=== PATIENT | male | born 1950 | race Caucasian/White ===

== ENCOUNTER 2017-08-17 08:13 | Observation (INO) | payer OTHER ==
[~2017-08-17] VITALS: Ht 182.9 cm; Wt 111.3 kg
[2017-08-17] VITALS (15 sets, daily range): BP systolic 135–178; BP diastolic 72–99; PULSE 58–78; TEMP 36.6–37.4; O2SAT 93–97; Ht 182.9 cm; Wt 111.3 kg
[2017-08-17] MEDS ORDERED: MULTTAB5 (08:59)
[2017-08-17] MEDS ORDERED: ACET650T66 PO (08:59)
[2017-08-17] MEDS ORDERED: MISC1CAP2 (08:59)
[2017-08-17] MEDS ORDERED: LISI-725 PO (08:59)
[2017-08-17] MEDS ORDERED: ASPCH81X PO (08:59)
[2017-08-17] MEDS ORDERED: NUTR1TAB3 (08:59)
[2017-08-17] MEDS ORDERED: METO25TA4 PO (08:59)
[2017-08-17] MEDS ORDERED: HYDR25TA4 PO (08:59)
[2017-08-17] MEDS ORDERED: ATOR-24 PO (08:59)
[2017-08-17] MEDS ORDERED: [UNRECOGNIZED DRUG - CODE] (08:59)
[2017-08-17] MEDS ORDERED: NiCARDipine HCL INJ 2.5 MG/ML 10 ML AMP ONE (09:45)
[2017-08-17] MEDS ORDERED: NITROGLYCERIN/D5W 100MCG/ML 20ML SYR ONE (09:46)
[2017-08-17] MEDS ORDERED: HEPARIN SOD (PORCINE) 1000 UNIT/ML 10 ML VIAL ONE ×2 (09:46→11:07)
[2017-08-17] MEDS ORDERED: MIDAZOLAM HCL 1 MG/ML 2ML VIAL ONE (09:46)
[2017-08-17] MEDS ORDERED: FENTANYL CITRATE INJ 50 MCG/1 ML 2 ML VIAL ONE (09:47)
--- NOTE | 2017-08-17 09:52 | History & Physical Bridge Note ---
H&P Re-Evaluation Bridge Note: I have examined the patient, reviewed the History & Physical and in the interval since the performance of the History & Physical I have noted the following changes of clinical significance: No changes noted
--- NOTE | 2017-08-17 11:03 | Procedure Note ---
Cardiac Cath Report Procedure: 1. Coronary angiography 2. Left heart cath History: This is a 66-year-old male patient who has had continued symptoms of dyspnea and shortness of breath with activity suggestive of angina. In January of last year he had GI bleeding from stomach ulcers due to NSAIDs. After he recovered from his anemia he had continued symptoms and it was felt that it was best that he be evaluated with a cardiac catheterization. Procedure summary: The patient was seen and evaluated in the holding area the Retail Pharmacy Merchandiser. After informed consent was obtained the patient was taken to the cardiac catheterization lab where he was prepped and draped in the usual manner for a right transradial approach. The patient had good collateral flow from the ulnar artery prior to the procedure. Preformed 5 Tamazight diagnostic catheters were utilized for the coronary angiograms. Following the procedure the patient underwent coronary intervention and then was admitted in stable condition. Coronary angiography: The coronary anatomy is calcified under fluoroscopy. Selective injections of the left coronary artery revealed the left main trunk to be widely patent. There are 2 ramus branches one from the left circumflex and one from the LAD which are medium to large in size. The ramus from the left circumflex artery has a 50% proximal stenosis. The ramus from the LAD has a 60-70% mid stenosis. The left circumflex artery consists of an AV groove and a medium to large size marginal branch. There is also a small marginal branch between the ramus and the large marginal branch. The left circumflex system is widely patent. There is also evidence of a bronchial artery from the distal circumflex. The LAD does reach the apex of the heart. The LAD is diffusely diseased in its proximal and midsegment. In the proximal segment there is a 50 % narrowing. The LAD gives off 2 small to medium sized diagonal branches. Selective injections of the right coronary artery reveal it to be diffusely diseased. The right coronary artery is dominant. In its proximal segment there is an ulcerated 80-90% stenoses. There are several branches from the right coronary artery that supply the posterior septum. Each branch has at least a 60-70% stenosis in its mid to distal segment. Left heart catheterization: The LVEDP is 10. Summary: The patient has a severe ulcerated stenosis of the proximal right coronary artery which is large and dominant. The remainder of the coronary anatomy has peripheral small vessels which are diseased but can be treated medically. Recommendations: The patient has a history of GI bleeding and therefore a bare- metal stent will be inserted in the right coronary artery.
--- NOTE | 2017-08-17 11:06 | Cardiac Catheterization ---
Procedure Note Procedure Date Aug 17, 2017. Pre-Procedure Diagnosis Angina AUC Score 7 Post-Procedure Diagnosis Severe CAD Procedure(s) Performed Coronary Angiography, Left Heart Cath Wireless Sales Associate Dr. Allred Furniture Repairer(s) None Estimated Blood Loss None Medication(s) Heparin, Versed, Lidocaine 1% Summary of Findings See dictated report Hemodynamics Rest Ao: 116/70 Final Ao: 142/73 LV: 123/10 Recommendations PCI without planned CABG Specimens None Radiation Exposure (mGy) 3147 Contrast (mls) 106 Procedural Complication(s) None Disposition Recovery Room / PACU ACC Data Cardiac Status Clinical evaluation leading to the procedure CAD Presntation: Unstable angina Anginal Classification: CCS III Heart Failure: No Cardiogenic Shock w/in 24Hrs: No Cardiac Arrest w/in 24Hrs: No Imaging studies past 6 months: Yes Stress studies past 6 months: Yes Coronary Anatomy Dominant: Right Left Main (% Stenosis): Normal Circumflex (% Stenosis): Normal RCA (% Stenosis): Proximal (80) Diagnostic Status: Elective Closure Device Percutaneous Entry Location: Radial Closure Device: Radial Band Recommendations: PCI without planned CABG
--- NOTE | 2017-08-17 11:07 | Pre Sedation Assessment ---
Pre Sedation Assessment General Date of Sedation: Aug 17, 2017. Vital Signs Past 12 Hours Date Time Temp Pulse Resp B/P (MAP) Pulse Ox O2 Delivery O2 Flow Rate FiO2 08/17/17 08:56 37 74 18 178/95 (122) 97 Room Air Review Cardiovascular: regular rate, rhythm Lungs: lungs clear Pre-Sedation Airway Assessment Smoking Status: Former Smoker Hx of Sleep Apnea: No Hx of difficult intubation: No Short Thick Neck: No Thyro-mental Distance: > 3 Finger Breadths Oral Cavity: WNL Mallampati Classification: Class I ASA Classification: Class II NPO Status Date of Last Intake of Fluids: Aug 17, 2017 Time of Last Intake of Fluids: 0700 Date of Last Intake of Solids: Aug 16, 2017 Time of Last Intake of Solids: 1800 Notes The planned sedation has been discussed with the patient. Informed Consent was obtained. I have identified the patient, determined the appropriateness of sedation and have assessed the patient immediately prior to the procedure. All medicine(s) and interventions are by my order.
[2017-08-17] MEDS ORDERED: CLOPIDOGREL BISULFATE 300 MG TAB PO ONE (11:41)
[2017-08-17] MEDS ORDERED: NITROGLYCERIN 0.4 MG SL PER TAB CHARGE SL PRN (11:45)
[2017-08-17] MEDS ORDERED: ACETAMINOPHEN 325 MG TAB PO PRN (11:45)
[2017-08-17] MEDS ORDERED: ONDANSETRON INJ 2 MG/ML 2 ML VIAL IV PRN (11:45)
--- NOTE | 2017-08-17 11:56 | Post Sedation Assessment ---
Post Sedation Assessment General Date of Sedation Aug 17, 2017. Vital Signs: Vital Signs Past 12 Hours Date Time Temp Pulse Resp B/P (MAP) Pulse Ox O2 Delivery O2 Flow Rate FiO2 08/17/17 11:30 60 16 128/60 (82) 96 Room Air 08/17/17 08:56 37 74 18 178/95 (122) 97 Room Air Post Procedure Recovery Score Activity: (2) Moves 4 extremities * Respiration: (2) Deep breath/cough Circulation: (2) +/-20% PreAnes Value Consciousness: (2) Fully Awake Oxygen Saturation: (2) > 92% On Room Air Post Anesthesia Score: 10 Discharge Sedation Level of Care: Fast Track Phase II Post Sedation Plan On clinical assessment, the patient appears to have tolerated the sedation without complications. Patient is recovering as anticipated. Patient will continue to be monitored by nursing and may be discharged when sedation discharge criteria are met per below protocol. Upon Completions of procedure and additional 15 minutes continue every 5 minute vital signs and the P.A.R. score; then discharge to a Phase I or Fast Track to Phase II per the following guidelines: * Discharge Patient to appropriate Phase II area if PAR is 8 or greater or return to pre- procedure baseline. The post - procedure orders will be as directed. * If PAR score is less than 8 or not return to pre-procedure baseline then patient will follow Phase I monitoring till PAR is reached for Phase II. The Phase I may be done in procedure room or may call to secure a Phase I area. * If naloxone or flumazenil are used for reversal, hold in Phase I for an additional 60 -120 minutes before discharge to Phase II. Please call the Sedation Physician to re-evaluate and complete post-note for discharge to Phase II area. Do NOT discharge from procedure sedation or Phase 1 until post- sedation evaluation note is complete by procedure /sedation MD Sedation Discharge Instructions to be given to the patient at discharge to home.
--- NOTE | 2017-08-17 12:10 | Cardiac Catheterization ---
Procedure Note Procedure Date Aug 17, 2017. Pre-Procedure Diagnosis Angina AUC Score 7 Post-Procedure Diagnosis Severe CAD Procedure(s) Performed Drug Eluting Stent, IVUS Stripping Machine Operator Juanjo Aircraft Powertrain Repairer(s) Rogelio Estimated Blood Loss 20 Medication(s) Fentanyl, Heparin, Nicardipine, Versed, Lidocaine 1% Summary of Findings Indication: Refractory angina on medical therapy Access: 6Fr right radial artery Catheters: JR 4 guide Findings: For full details of patient's coronary angiography please see cath report dictated by Dr. Allred. Briefly patient found to have a high-grade, ectatic proximal RCA lesion. Decision to proceed with PCI. History of gastric ulcers with bleeding -- PCI -- Antithrombotic therapy: Heparin, Clopidogrel Procedure: RCA cannulated with JR4 guide Lead Coater 50 wire passed across lesion into distal vessel Proximal RCA direct stented with 4.5 x 18 BMS (multilink ultra) Stent post-dilated with 5.0 noncompliant balloon IVUS showed well expanded stent and well apposed stent proximally. Few stent struts hanging out into aneurysmal segment right after stenosis. Post procedure ANMOL 3 flow, stent well expanded with minimal residual stenosis and no apparent cardiac complications. Arterial Closure: TR Band Summary: 1. Successful PCI of proximal RCA with single BMS (4.5 x 18, post-dilated to 5.0 ). Recommendations: To PCU for continued monitoring Loaded with Clopidogrel 600mg in label folder Continue dual-antiplatelet therapy for 1 month Continue statin, ASCVD risk factor modification Consult cardiac Rehab If persistent symptoms in the future and tolerates DAPT R-PDA, PLB could potentially be treated with POBA/PCI with stenting. Hemodynamics Rest Ao: 116/70/92 Final Ao: 142/73/100 LV: 123/10 Recommendations PCI without planned CABG Specimens None Radiation Exposure (mGy) 3147 Contrast (mls) 106 Vis Fluids (cc crystalloids) 55 NSS Drains None Anesthesia Moderate Procedural Complication(s) None Disposition PCU ACC Data Cardiac Status Clinical evaluation leading to the procedure CAD Presntation: Stable angina Anginal Classification: CCS III Heart Failure: No, NYHA Class: CCS I Cardiogenic Shock w/in 24Hrs: No Cardiac Arrest w/in 24Hrs: No Imaging studies past 6 months: Yes Stress studies past 6 months: No Diagnostic Physician's Name: Placido Allred, DO Status: Elective Closure Device Percutaneous Entry Location: Radial Closure Device: Radial Band Recommendations: PCI without planned CABG PCI Indication: Angina despite med therapy Lesion Segment Name: proximal RCA Culprit Artery: Yes Stenosis Prior to Rx (%): 70 Chronic Total Occlusion: No IVUS: Yes FFR: No Pre-Procedure ANMOL Flow: 3 Lesion Complexity: Non-High/Non-C Lesion Length (mm): 12 Thrombus Present: Yes Bifurcation Lesion: No Guidewire Across Lesion: Yes Guidewire: Stenosis Post-Procedure (%): 0 Post-Procedure ANMOL Flow: 3 Device(s) Deployed: Yes Intraprocedure Events Significant Dissection: No Perforation: No
--- NOTE | 2017-08-17 13:14 | History and Physical ---
History & Physical Date & Time of Service: Aug 17, 2017 at 13:14 Chief Complaint: Shortness of breath . Primary Care Physician: Arron Mueller D.O. History of Present Illness Source: patient, clinic records, hospital records 66-year-old male followed by Dr. Mueller. History of hypertension, dyslipidemia, and other problems noted below. Pharmacologic nuclear stress test performed on 03/06/17 to evaluate dyspnea on exertion. Study demonstrated diffuse ST depression and perfusion defects inferiorly and laterally. Cardiac catheterization initially postponed due to recent upper gastrointestinal bleeding secondary to ulcers. Catheterization was performed today by Dr. Allred and he is found to have a proximal RCA lesion. PCI with bare-metal stent performed by Dr. Geiger with good results. Doing well after procedure. No chest pain. No cough or dyspnea. No nausea or vomiting. . Past Medical/Surgical History Chronic and Resolved Medical Problems: (1) CAD (coronary artery disease) Status: Chronic (2) Dyslipidemia Status: Chronic (3) Hypertension Status: Chronic (4) Upper gastrointestinal bleeding Permanent Comment: gastric ulcers attributed to naproxen Status: Chronic Surgical Problems: (1) Status post appendectomy Status: Chronic (3) Status post inguinal hernia repair Status: Chronic . Family History Mother-chronic kidney disease, pulmonary embolism Father-CHF, suspected NM . Social History Smoking Status: Never Smoker Alcohol Use: none Allergies Coded Allergies: No Known Allergies (Unverified , 07/03/14) Home Medications Scheduled Acetaminophen (Arthritis Pain), 2 TABS PO BID Aspirin (Aspirin Chewable), 81 MG PO DAILY Atorvastatin (Lipitor), 40 MG PO DAILY Hydrochlorothiazide (Hctz), 1 TAB PO DAILY Lisinopril (Zestril), 10 MG PO DAILY Metoprolol Succinate (Toprol Xl), 0.5 TAB PO DAILY Miscellaneous Medications Gvbuozny-Njrm-Eujjrqj (Veinerect) Misc Natural Products (Prostate) Multiple Vitamins W/ Minerals (Centrum) Nutritional Supplements (Bladder 2.2) Review of Systems Constitutional: No fever Respiratory: + dyspnea on exertion, No cough Cardiovascular: No chest pain, No edema Abdomen: No nausea, No vomiting, No GI bleeding (No recent melena or hematochezia) Genitourinary - Male: + urinary frequency, No hematuria, No dysuria Physical Exam Vital Signs Date Time Temp Pulse Resp B/P (MAP) Pulse Ox O2 Delivery O2 Flow Rate FiO2 08/17/17 12:46 37.1 58 18 172/72 95 Room Air 08/17/17 12:30 68 16 130/80 (97) 97 Room Air 08/17/17 12:15 70 16 138/89 (105) 97 Room Air 08/17/17 12:00 70 16 145/89 (107) 97 Room Air 08/17/17 11:45 65 16 149/80 (103) 95 Room Air 08/17/17 11:30 60 16 128/60 (82) 96 Room Air 08/17/17 08:56 37 74 18 178/95 (122) 97 Room Air General Appearance: WD/WN, no apparent distress Head: normocephalic, atraumatic Eyes: normal inspection, PERRL, EOMI, sclerae normal ENT: normal ENT inspection, hearing grossly normal Neck: thyroid normal, trachea midline Respiratory/Chest: lungs clear (Auscultation and percussion), no respiratory distress Cardiovascular: + pertinent finding (Bigeminal rhythm; no murmur or gallop appreciated; carotids 2/2; pedal pulses intact) Abdomen/GI: normal bowel sounds, non tender, soft, no organomegaly Extremities/Musculoskelatal: no calf tenderness, + pertinent finding (No cyanosis or clubbing ; compression band right wrist) Neurologic/Psych: alert, oriented x 3 Skin: normal color, warm/dry Lymphatic: no adenopathy Diagnostics Laboratory Results Results Past 24 Hours Test 08/17/17 11:05 08/17/17 13:06 Range/Units Kaolin Activated Coagulation Time 224 94-140 SECONDS EKG EKG performed at 1357 revealed normal sinus rhythm at 65/minute, no acute ST or T-wave abnormalities. . Impression Assessment and Plan CORONARY ARTERY DISEASE Status post successful stenting of proximal RCA lesion with bare-metal stent. Antiplatelet therapy with aspirin and clopidogrel. Continue metoprolol. Continue atorvastatin. VENTRICULAR ECTOPY Noted to have PVCs and intermittent bigeminal rhythm upon arrival to Telemetry Unit. Serum magnesium and potassium normal. Patient did not take his morning dose of metoprolol; it was ordered. Continue cardiac monitoring. HYPERTENSION Continue metoprolol and lisinopril. DYSLIPIDEMIA Continue atorvastatin. VTE PROPHYLAXIS Received IV heparin with cardiac cath. Convert to SQ heparin. Ambulate. DISPOSITION Expected discharge to home. Medical follow-up with Dr. Mueller. Cardiology follow-up with Dr. Patten. . Advanced Directives Existing Living Will: No Existing Power of Produce Buyer: No Resuscitation Status VTE Prophylaxis Will order VTE Prophylaxis: Yes
[2017-08-17] MEDS: SODIUM CHLORIDE 0.9% 1000ML 1,000 ML IV SCH ×2 (13:19→19:48)
[2017-08-17] MEDS ORDERED: METOPROLOL SUCC 25MG EXT REL TAB PO STA (13:22)
[2017-08-17] MEDS ORDERED: METOPROLOL TARTRATE 1 MG/ML VIAL IV STA (13:22)
[2017-08-17 14:14] LABS: CALCIUM 8.6 mg/dl (8.5-10.1); CREATININE 1.11 mg/dl (0.60-1.40); POTASSIUM 3.9 mmol/L (3.5-5.1)
[2017-08-17] MEDS ORDERED: INFLUENZA ADMINISTRATION CHARGE ONE (17:15)
[2017-08-17] MEDS ORDERED: INFLUENZA VACCINE HIGH DOSE 65+ 0.5 ML SYR IM. ONE (17:15)
[2017-08-17] MEDS ORDERED: IV FLUIDS COMPLETED PRN (17:30)
[2017-08-18 03:40] VITALS: BP 157/98; PULSE 95; TEMP 37.5; O2SAT 93
[2017-08-18 07:02] LABS: CALCIUM 8.5 mg/dl (8.5-10.1); CREATININE 0.97 mg/dl (0.60-1.40); POTASSIUM 3.8 mmol/L (3.5-5.1)
[2017-08-18 07:37] LABS: PTT PATIENT 26.3 SECONDS (21.0-31.0)
[2017-08-18 07:44] LABS: HEMOGLOBIN 13.3 g/dL (14.0-18.0); MEAN CELL VOLUME 97.3 fL (80-100); MEAN CORPUSCULAR HEMOGLOBIN 33.2 pg (25-34); MEAN CORPUSCULAR HGB CONC 34.1 g/dl (32-36); MEAN PLATELET VOLUME 10.7 fL (7.4-10.4); PLATELET COUNT 88 K/uL (130-400); RED CELL DISTRIBUTION WIDTH CV 14.4 % (11.5-14.5); RED CELL DISTRIBUTION WIDTH SD 51.3 fL (36.4-46.3); WHITE BLOOD COUNT 4.48 K/uL (4.8-10.8)
[2017-08-18 07:45] LABS: BASO % 0.4 %; BASO ABS # 0.02 K/uL (0-0.2); EOS % 2.7 %; EOS ABS # 0.12 K/uL (0-0.5); IG# 0.01 K/uL (0.00-0.02); LYMPH % 16.3 %; LYMPH ABS # 0.73 K/uL (1.2-3.4); MONO ABS # 0.45 K/uL (0.11-0.59); NEUT % 70.4 %; NEUT ABS # 3.15 K/uL (1.4-6.5)
[2017-08-18 08:05] VITALS: BP 134/90; PULSE 72; TEMP 37.3; O2SAT 95
[2017-08-18] MEDS ORDERED: CEROVITE ADV FORMULA TAB PO SCH (09:00)
[2017-08-18] MEDS ORDERED: HYDROCHLOROTHIAZIDE 25 MG TAB PO SCH (09:00)
[2017-08-18] MEDS ORDERED: ATORVASTATIN 20 MG TAB PO SCH (09:00)
[2017-08-18] MEDS ORDERED: ASPIRIN 81 MG ECTAB PO SCH (09:00)
[2017-08-18] MEDS ORDERED: HEPARIN SOD 5000 UNIT/0.5 ML CARP SQ SCH (09:00)
[2017-08-18] MEDS ORDERED: CLOPIDOGREL BISULFATE 75 MG TAB PO SCH (09:00)
[2017-08-18] MEDS ORDERED: LISINOPRIL 20 MG TAB PO SCH (09:00)
[2017-08-18] MEDS ORDERED: METOPROLOL SUCC 25MG EXT REL TAB PO SCH (09:00)
[2017-08-18] MEDS ORDERED: PLV75 PO ×2 (10:46→10:48)
--- NOTE | 2017-08-18 10:46 | Cardiology Follow-Up ---
Subjective Subjective Date of Service: Aug 18, 2017. Pt evaluation today including: conversation w/ patient, physical exam, chart review, lab review, review of studies, review of inpatient medication list Additional Details: Pt seen and examined, states that he feels well. No complaints overnight, denies cp, sob, palpitations, lightheadedness or dizziness. No pain at wrist puncture site. Tele reviewed: sinus rhythm without arrhythmia, occasional PVC's. Review of Systems Respiratory: No see HPI, No cough, No sputum, No wheezing, No shortness of breath, No dyspnea on exertion, No dyspnea at rest, No hemoptysis, No problem reported Cardiac: No see HPI, No chest pain, No orthopnea, No PND, No edema, No claudication, No palpitations, No problem reported Objective Vital Signs Last Vital Signs Documentation Date Time Temp Pulse Resp B/P (MAP) Pulse Ox O2 Delivery O2 Flow Rate FiO2 08/18/17 08:05 37.3 72 18 134/90 (105) 95 08/18/17 08:00 Room Air Physical Exam: General Appearance: WD/WN, no apparent distress Eyes: bilateral eyes normal inspection, bilateral eyes PERRL, bilateral eyes EOMI ENT: normal ENT inspection, hearing grossly normal, pharynx normal Neck: supple, no adenopathy, thyroid normal, no JVD, no carotid bruits, trachea midline Respiratory/Chest: chest non-tender, lungs clear, normal breath sounds, no respiratory distress, no accessory muscle use Cardiovascular: regular rate, rhythm, no edema, no JVD, no murmur, + gallop/S4 Abdomen: normal bowel sounds, non tender, soft, no organomegaly Extremities: normal range of motion, non-tender, normal inspection, no pedal edema, no calf tenderness Neurologic/Psychiatric: clinical research technician II-XII nml as tested, no motor/sensory deficits, alert, normal mood/affect, oriented x 3 Skin: normal color, warm/dry, no rash Lymphatic: no adenopathy Assessment and Plan 1. CAD s/p PCI with BMS to an ulcerated proximal RCA lesion tolerated well recent history of GI bleed, BMS placed, will require 1 month of plavix, lifelong aspirin will have patient follow up with Dr. Patten in 3-4 weeks, prior to discontinuing plavix recommended to increase activity gradually by walking need for cardiac rehab will be determined at follow up cont atorvastatin, toprol and lisinopril for discharge to home
--- NOTE | 2017-08-18 10:51 | Discharge Instructions ---
Discharge Instructions Date of Service Aug 18, 2017. Admission Reason for Admission: Dyspnea W/Exertion *Dr Allred Doing* Discharge Discharge Diagnosis / Problem: Severe coronary artery disease and a stent placed Discharge Goals Goal(s): Decrease discomfort, Improve function, Diagnostic testing, Therapeutic intervention Activity Recommendations Activity Limitations: resume your previous activity . Instructions / Follow-Up Instructions / Follow-Up Please follow-up with your primary care physician Please follow-up with cardiology on August 30 at 1:30PM You should take aspirin and Plavix together until outpatient follow-up with cardiology Current Hospital Diet Patient's current hospital diet: AHA Diet (Heart Healthy) Discharge Diet Recommended Diet: AHA Diet (Heart Healthy) Pending Studies Studies pending at discharge: no Medical Emergencies . Who to Call and When: Medical Emergencies: If at any time you feel your situation is an emergency, please call 911 immediately. . Non-Emergent Contact Non-Emergency issues call your: Primary Care Provider, Director Of Enrollment . . "Provider Documentation" section prepared by Leann Ortega. . VTE Core Measure Inpt VTE Proph given/why not?: Other Anticoagulation
--- NOTE | 2017-08-18 10:59 | Progress Note ---
Subjective Date of Service: Aug 18, 2017. Subjective Pt evaluation today including: conversation w/ patient, physical exam, lab review, review of studies, review of inpatient medication list Saw/examined the patient in room 207 No problems/issues to note today, he is doing well after his cardiac cath Denies any symptoms Review of Systems Respiratory: No cough, No sputum, No wheezing, No shortness of breath, No dyspnea on exertion, No dyspnea at rest, No hemoptysis Cardiac: No chest pain, No edema, No palpitations Abdomen: No pain, No nausea, No vomiting, No diarrhea Medications Current Inpatient Medications Medications (Trade) Dose Ordered Sig/Pineda Route Start Time Stop Time Status Last Admin Dose Admin Nitroglycerin (Nitrostat Tab) 0.4 mg UD PRN SL 08/17/17 11:45 09/16/17 11:44 Ondansetron HCl (Zofran Inj) 4 mg Q6H PRN IV 08/17/17 11:45 09/16/17 11:44 Clopidogrel Bisulfate (plAVix TAB) 75 mg QAM PO 08/18/17 09:00 09/17/17 08:59 08/18/17 08:21 75 MG Acetaminophen (Tylenol Tab) 650 mg Q4H PRN PO 08/17/17 11:45 09/16/17 11:44 Aspirin (Ecotrin Tab) 81 mg DAILY PO 08/18/17 09:00 09/17/17 08:59 08/18/17 08:21 81 MG Atorvastatin Calcium (Lipitor Tab) 40 mg DAILY PO 08/18/17 09:00 09/17/17 08:59 08/18/17 08:22 40 MG Hydrochlorothiazide (Hydrochlorothiazide Tab) 25 mg DAILY PO 08/18/17 09:00 09/17/17 08:59 08/18/17 08:21 25 MG Metoprolol Succinate (Toprol Xl Tab) 12.5 mg DAILY PO 08/18/17 09:00 09/17/17 08:59 08/18/17 08:21 12.5 MG Multivitamins/ Minerals (Multivitamin W/ Minerals Tab) 1 tab DAILY PO 08/18/17 09:00 09/17/17 08:59 08/18/17 08:21 1 TAB Miscellaneous (Iv Fluids Completed) 1 ea PRN PRN N/A 08/17/17 17:30 08/17/18 17:29 Heparin Sodium (Porcine) (Heparin Sq 5000 Unit/0.5ml) 5,000 unit Q12 SQ 08/18/17 09:00 09/17/17 08:59 08/18/17 10:18 5,000 UNIT Objective Vital Signs Date Time Temp Pulse Resp B/P (MAP) Pulse Ox O2 Delivery O2 Flow Rate FiO2 08/18/17 08:05 37.3 72 18 134/90 (105) 95 08/18/17 08:00 Room Air 08/18/17 04:00 Room Air 08/18/17 03:40 37.5 95 20 157/98 (117) 93 Room Air 08/18/17 00:00 Room Air 08/17/17 23:40 36.7 72 22 151/93 (112) 93 Room Air 08/17/17 20:00 96 Room Air 08/17/17 19:51 36.6 70 20 156/99 (118) 96 Room Air 08/17/17 17:28 70 18 162/97 (118) 95 Room Air 08/17/17 16:28 69 18 148/93 (111) 96 Room Air 08/17/17 16:00 37.4 66 20 142/89 (106) 96 Room Air 08/17/17 16:00 96 Room Air 08/17/17 15:30 37.4 66 20 142/89 (106) 96 Room Air 08/17/17 14:30 65 16 153/97 (115) 96 Room Air 08/17/17 14:00 68 16 138/88 (105) 96 Room Air 08/17/17 13:37 65 08/17/17 13:30 71 16 151/90 (110) 95 Room Air 08/17/17 13:00 78 19 138/94 (109) 93 Room Air 08/17/17 12:46 37.1 58 18 172/72 95 Room Air 08/17/17 12:35 37.1 65 16 135/84 (101) 94 Room Air 08/17/17 12:30 68 16 130/80 (97) 97 Room Air 08/17/17 12:20 37.1 65 16 172/72 (105) 95 Room Air 08/17/17 12:15 70 16 138/89 (105) 97 Room Air 08/17/17 12:00 70 16 145/89 (107) 97 Room Air 08/17/17 11:45 65 16 149/80 (103) 95 Room Air 08/17/17 11:30 60 16 128/60 (82) 96 Room Air Physical Exam General Appearance: no apparent distress Respiratory/Chest: chest non-tender, lungs clear, normal breath sounds, no respiratory distress, no accessory muscle use Cardiovascular: regular rate, rhythm, no edema, no murmur Extremities: normal inspection, no pedal edema Laboratory Results Last 24 Hours Test 08/17/17 11:05 08/17/17 13:31 08/18/17 05:57 08/18/17 07:02 Kaolin Activated Coagulation Time 224 SECONDS Sodium Level 141 mmol/L 141 mmol/L Potassium Level 3.9 mmol/L 3.8 mmol/L Chloride Level 107 mmol/L 108 mmol/L Carbon Dioxide Level 27 mmol/L 27 mmol/L Anion Gap 7.0 mmol/L 6.0 mmol/L Blood Urea Nitrogen 21 mg/dl 16 mg/dl Creatinine 1.11 mg/dl 0.97 mg/dl Est Creatinine Clear Calc Drug Dose 82.4 ml/min 95.2 ml/min Estimated GFR () 79.2 93.2 Estimated GFR (Non- 68.3 80.5 BUN/Creatinine Ratio 18.6 16.4 Random Glucose 130 mg/dl 102 mg/dl Calcium Level 8.6 mg/dl 8.5 mg/dl Magnesium Level 2.1 mg/dl Hepatitis C Antibody Screen NEG White Blood Count 4.48 K/uL Red Blood Count 4.01 M/uL Hemoglobin 13.3 g/dL Hematocrit 39.0 % Mean Corpuscular Volume 97.3 fL Mean Corpuscular Hemoglobin 33.2 pg Mean Corpuscular Hemoglobin Concent 34.1 g/dl Platelet Count 88 K/uL Mean Platelet Volume 10.7 fL Neutrophils (%) (Auto) 70.4 % Lymphocytes (%) (Auto) 16.3 % Monocytes (%) (Auto) 10.0 % Eosinophils (%) (Auto) 2.7 % Basophils (%) (Auto) 0.4 % Neutrophils # (Auto) 3.15 K/uL Lymphocytes # (Auto) 0.73 K/uL Monocytes # (Auto) 0.45 K/uL Eosinophils # (Auto) 0.12 K/uL Basophils # (Auto) 0.02 K/uL RDW Standard Deviation 51.3 fL RDW Coefficient of Variation 14.4 % Immature Granulocyte % (Auto) 0.2 % Immature Granulocyte # (Auto) 0.01 K/uL Platelet Estimate DECREASED Large Platelets 1+ Prothrombin Time 10.8 SECONDS Prothromb Time International Ratio 1.0 Activated Partial Thromboplast Time 26.3 SECONDS Partial Thromboplastin Ratio 1.0 Assessment and Plan This is a 66 year old male with a PMH of CAD, HTN, HLD, recent upper GI bleed - presented for a cardiac cath and subsequent stent placement Severe CAD s/p stent cardiac cath yesterday (08/17) - had a bare metal stent to the RCA he's doing well, no problems; no chest pain/palpitations plan to d/c with aspirin + Plavix as well as b-rimma and statin will need dual antiplatelets for at least one month monitor for any GI bleeding due to recent UGIB HTN blood pressure labile will restart Lisinopril on discharge continue Toprol and HCTZ DVT ppx subq heparin FULL CODE
--- NOTE | 2017-08-18 11:00 | Discharge Summary ---
Discharge Summary Date of Service Aug 18, 2017. Discharge Summary Admission Date: Aug 17, 2017 at 11:43 Discharge Date: Aug 18, 2017 Discharge Disposition: Home Principal Diagnosis: Severe CAD s/p PCI/stent x1 Hx. of GI bleed Medication Reconciliation New Medications: Clopidogrel Bisulfate (Clopidogrel) 75 Mg Tab 75 MG PO QAM for 30 Days, #30 TAB Continued Medications: Acetaminophen (Arthritis Pain) 650 Mg Tab 2 TABS PO BID [id number] (Veinerect) 1 Cap Cap Aspirin (Aspirin Chewable) 81 Mg Chew 81 MG PO DAILY Atorvastatin (Lipitor) 40 Mg Tab 40 MG PO DAILY, TAB Hydrochlorothiazide (Hctz) 25 Mg Tab 1 TAB PO DAILY for 30 Days, #30 TAB 5 Refills Lisinopril (Zestril) 20 Mg Tab 10 MG PO DAILY, TAB 1/2 pill daily Metoprolol Succinate (Toprol Xl) 25 Mg Tabcr 0.5 TAB PO DAILY for 30 Days, #15 TAB 5 Refills Misc Natural Products (Prostate) 1 Cap Cap Multiple Vitamins W/ Minerals (Centrum) 1 Tab Tab Nutritional Supplements (Bladder 2.2) 1 Tab Tab Admission Information HPI (per Admitting provider): 66-year-old male followed by Dr. Mueller. History of hypertension, dyslipidemia, and other problems noted below. Pharmacologic nuclear stress test performed on 03/06/17 to evaluate dyspnea on exertion. Study demonstrated diffuse ST depression and perfusion defects inferiorly and laterally. Cardiac catheterization initially postponed due to recent upper gastrointestinal bleeding secondary to ulcers. Catheterization was performed today by Dr. Allred and he is found to have a proximal RCA lesion. PCI with bare-metal stent performed by Dr. Geiger with good results. Doing well after procedure. No chest pain. No cough or dyspnea. No nausea or vomiting. . Physical Exam (per Admitting): General Appearance: WD/WN, no apparent distress Head: normocephalic, atraumatic Eyes: normal inspection, PERRL, EOMI, sclerae normal ENT: normal ENT inspection, hearing grossly normal Neck: thyroid normal, trachea midline Respiratory/Chest: lungs clear (Auscultation and percussion), no respiratory distress Cardiovascular: + pertinent finding (Bigeminal rhythm; no murmur or gallop appreciated; carotids 2/2; pedal pulses intact) Abdomen/GI: normal bowel sounds, non tender, soft, no organomegaly Extremities/Musculoskelatal: no calf tenderness, + pertinent finding (No cyanosis or clubbing ; compression band right wrist) Neurologic/Psych: alert, oriented x 3 Skin: normal color, warm/dry Lymphatic: no adenopathy Hospital Course This is a 66 year old male with a PMH of CAD, HTN, HLD, recent upper GI bleed - presented for a cardiac cath and subsequent stent placement Severe CAD s/p stent cardiac cath yesterday (08/17) - had a bare metal stent to the RCA he's doing well, no problems; no chest pain/palpitations plan to d/c with aspirin + Plavix as well as b-rimma and statin will need dual antiplatelets for at least one month monitor for any GI bleeding due to recent UGIB HTN blood pressure labile will restart Lisinopril on discharge continue Toprol and HCTZ DVT ppx subq heparin FULL CODE Total time spent on discharge = 35 minutes This includes examination of the patient, discharge planning, medication reconciliation, and communication with other providers. Discharge Instructions Please follow-up with your primary care physician Please follow-up with cardiology on August 30 at 1:30PM You should take aspirin and Plavix together until outpatient follow-up with cardiology
[2017-08-18 11:54] VITALS: BP 148/91; PULSE 70; TEMP 37.3; O2SAT 95
== END 2017-08-18 12:30 | disposition home or self-care (01) ==
LOC: C.CATH 08:13 → EDBEDREQ 11:04 → C.2E 11:43 → ENRESERV 11:45
PROVIDERS: ADMIT Hospitalist; ATTEND Family Medicine
DX: I25.119 Atherosclerotic heart disease of native coronary artery with unspecified angina pectoris (principal); I10 Essential (primary) hypertension; E78.5 Hyperlipidemia, unspecified; Z90.49 Acquired absence of other specified parts of digestive tract; Z79.82 Long term (current) use of aspirin; Z83.3 Family history of diabetes mellitus; Z82.49 Family history of ischemic heart disease and other diseases of the circulatory system

== ENCOUNTER 2021-04-05 12:13 | Inpatient (IN) ==
--- NOTE | 2021-04-05 12:36 | Emergency Department Note ---
Impression & Plan Elevated troponin I level, AML (acute myeloid leukemia), Thrombocytopenia, Obstructive sleep apnea, Bradycardia ED Provider Note NAME: ROSALINA SHEA AGE: 70 SEX: M : 1950 ARRIVES VIA: Walk-In INFORMANT: Patient, ED PROVIDER(S): John Toledo MD Chief Complaint: Bradycardia HPI: Patient does present to the emergency department from the [facility] [place] the patient did have an episode of bradycardia cardia while he was completing a transfusion for platelets. The patient does have a history of leukemia. The patient does receive chemotherapy and is currently on a list for possible BMT. Patient does have a history of CAD and does have a stent. The patient denies any symptoms at the time of his bradycardia. The patient does take metoprolol. Patient has any fevers chills chest pains or shortness of breath. Patient denies any nausea or vomiting. The patient does have chronic lower extremity edema. Patient denies any other acute symptoms at this time. Patient denies any vagal maneuvers at the time of the bradycardia. ROS: See HPI for pertinent positives and negatives. A total of 10 systems were re viewed and otherwise negative. Past medical history: See below Surgical history: See below Social history: See below Physical Exam: GENERAL: NAD, wearing a mask, non-toxic. EYE EXAM: Normal conjunctiva. PERRL, no anisocoria and EOM's grossly intact w/o pain. NECK: Supple, no nuchal rigidity, no adenopathy, non-tender. No signs of meningismus. LUNGS: Clear to auscultation. Normal chest wall mechanics. HEART: NSR, no MRG. ABDOMEN: Abdomen soft, non-tender, normo-active bowel sounds, no masses, no rebound or guarding. BACK: No CVA TTP. SKIN: No rashes and no bruising. UPPER EXTREMITIES: Upper extremities are grossly normal. LOWER EXTREMITIES: Grossly normal, 1+ bilateral symmetric lower extremity edema. NEURO EXAM: A&O x3, cranial nerves II-XII grossly intact, normal speech, moves all 4 extremities on command w/o issue. Differential diagnoses: Premature contractions, electrolyte abnormality, cardiac dysrhythmia, thyroid dysfunction, pulmonary embolism, infection, gastrointestinal, as well as other pathologies. Course: Patient was seen and evaluated the bedside. Full history physical exam was performed. EKG interpreted by me Sinus with PVCs likely bigeminy, rate of 79, wide QRS, right bundle branch block pattern. Imaging Studies: See Below Cardiac monitoring: An order was placed for continuous cardiac monitoring. The monitor shows a rate of 77 with sinus with occasional PVC rhythm. MDM: Did present due to concern for an episode of bradycardia. Blood work was ob tained. EKG shows bigeminy with PVCs. Chest x-ray is clear. Patient's troponin is positive. In light of the patient's prior history of CAD and stenting with positive troponin believe the patient should be observed to be on telemetry. The patient is on metoprolol. I did speak with the on-call hospitalist and the patient was admitted to the medicine service by Dr. Prieto. Will defer aspirin or heparin at this time as the patient does have significant thrombocytopenia. The patient had been on antiplatelets in the past but was taken off of them. Patient denies any chest pains or shortness of breath. Past Med/Surg History Medical History AML (acute myeloid leukemia) Asthma CAD (coronary artery disease) Chronic diastolic CHF (congestive heart failure) Dyslipidemia Gastric ulcer gastric ulcers due to naproxsyn bleeding Hypertension Obstructive sleep apnea Pulmonary HTN Spinal stenosis Surgical History Hx of appendectomy Hx of hernia repair Stented coronary artery Family History Mother Hx of diabetes mellitus Social History Smoking Status: Never smoker Hx Alcohol Use: No Hx Substance Use: No Preferred Language: Lao Communication Ability: Effective Visual Impairment: No Limitations Hearing Ability: Normal Road Mixer Operator Required: No Beliefs That Will Affect Care: Jain Jain Beliefs: Confucianist marital status: Single Current Living Situation: Alone current occupational status: retired Feels Safe at Home: Yes Childhood Exposure to Second-Hand Smoke: No (secondhand smoke while in the [employer]) caffeine: Yes (coffee one a day) Dental Care, Regularly: Yes Physical Activity Frequency: 1-2 Times per Week Seatbelt Use: always Sunscreen Use: No Allergies Allergies Allergy/AdvReac Type Severity Reaction Status Date / Time No Known Allergies Allergy Verified 04/05/21 13:23 Home Meds Home Medications Medication Instructions Recorded Confirmed metoprolol succinate 50 mg 50 mg PO DAILY 30 Days #15 tab 08/17/17 04/05/21 tablet,extended release 24 hr (Toprol XL) acyclovir 400 mg tablet 400 mg PO TID 03/31/21 04/05/21 allopurinol 300 mg tablet 300 mg PO DAILY 03/31/21 04/05/21 amlodipine 5 mg tablet 5 mg PO DAILY 03/31/21 04/05/21 ascorbic acid (vitamin C) 500 mg 500 mg PO BID 03/31/21 04/05/21 tablet doxycycline hyclate 100 mg capsule 100 mg PO BID 03/31/21 04/05/21 ezetimibe 10 mg tablet 10 mg PO DAILY 03/31/21 04/05/21 fluticasone 250 mcg-salmeterol 50 1 inh INHALATION BID 03/31/21 04/05/21 mcg/dose blistr powdr for inhalation fluticasone prop.50 mcg 1 ea INTRANASAL DAILY 03/31/21 04/05/21 spray,suspen-sod.chloride 0.9% nasal spray kit levofloxacin 500 mg tablet 500 mg PO DAILY 03/31/21 04/05/21 loratadine 10 mg tablet 10 mg PO DAILY 03/31/21 04/05/21 ondansetron 4 mg disintegrating 4 mg PO Q8H PRN 03/31/21 04/05/21 tablet posaconazole 100 mg tablet,delayed 300 mg PO DAILY 03/31/21 04/05/21 release rosuvastatin 10 mg tablet 10 mg PO DAILY 03/31/21 04/05/21 tamsulosin 0.4 mg capsule 0.4 mg PO DAILY 03/31/21 04/05/21 venetoclax 10 mg tablet 70 mg PO DAILY 03/31/21 04/05/21 amoxicillin 500 mg-potassium 1 tab PO BID 04/05/21 04/05/21 clavulanate 125 mg tablet (Augmentin) Results & Data (ED) Vital Signs Vital Signs - 24 hr 04/05/21 12:23 04/05/21 12:43 04/05/21 13:00 Temperature 35.9 C L Temperature Source Temporal Artery Scan Pulse Rate 78 79 77 Pulse Rate [Left Apical] Pulse Rhythm Regular Pulse Rhythm [Left Apical] Pulse Strength Normal Pulse Strength [Left Apical] Respiratory Rate 20 20 17 Respiratory Effort / Characteristics Non-Labored Spontaneous Respiratory Depth Normal Respiratory Pattern Regular Blood Pressure 151/80 H 141/90 H Blood Pressure [Right Arm] Blood Pressure Mean 103 107 Blood Pressure Mean [Right Arm] Blood Pressure Position Sitting Blood Pressure Position [Right Arm] Pulse Oximetry 97 98 97 Oxygen Delivery Method Room Air Oxygen Flow Rate Sepsis Recent Fever Within 48 Hours No Sepsis New/Unexplained Change in Mental Status No Sepsis Action Taken by Nursing No Action Required 04/05/21 13:17 04/05/21 13:23 04/05/21 13:30 Temperature Temperature Source Pulse Rate 75 77 Pulse Rate [Left Apical] 77 Pulse Rhythm Pulse Rhythm [Left Apical] Pulse Strength Pulse Strength [Left Apical] Respiratory Rate 20 16 13 Respiratory Effort / Characteristics Respiratory Depth Respiratory Pattern Blood Pressure 134/79 Blood Pressure [Right Arm] 141/90 H Blood Pressure Mean 97 Blood Pressure Mean [Right Arm] 107 Blood Pressure Position Blood Pressure Position [Right Arm] Pulse Oximetry 96 97 96 Oxygen Delivery Method Room Air Room Air Oxygen Flow Rate 96 Sepsis Recent Fever Within 48 Hours Sepsis New/Unexplained Change in Mental Status Sepsis Action Taken by Nursing 04/05/21 14:13 04/05/21 14:22 04/05/21 14:30 Temperature Temperature Source Pulse Rate 84 76 Pulse Rate [Left Apical] 75 Pulse Rhythm Pulse Rhythm [Left Apical] Regular Pulse Strength Pulse Strength [Left Apical] Normal Respiratory Rate 18 20 17 Respiratory Effort / Characteristics Non-Labored Respiratory Depth Normal Respiratory Pattern Regular Blood Pressure 146/96 H Blood Pressure [Right Arm] 152/82 H Blood Pressure Mean 112 Blood Pressure Mean [Right Arm] 105 Blood Pressure Position Blood Pressure Position [Right Arm] Lying Pulse Oximetry 95 97 97 Oxygen Delivery Method Room Air Oxygen Flow Rate Sepsis Recent Fever Within 48 Hours Sepsis New/Unexplained Change in Mental Status Sepsis Action Taken by Nursing 04/05/21 15:00 Temperature Temperature Source Pulse Rate 77 Pulse Rate [Left Apical] Pulse Rhythm Pulse Rhythm [Left Apical] Pulse Strength Pulse Strength [Left Apical] Respiratory Rate 14 Respiratory Effort / Characteristics Respiratory Depth Respiratory Pattern Blood Pressure 131/80 Blood Pressure [Right Arm] Blood Pressure Mean 97 Blood Pressure Mean [Right Arm] Blood Pressure Position Blood Pressure Position [Right Arm] Pulse Oximetry 97 Oxygen Delivery Method Oxygen Flow Rate Sepsis Recent Fever Within 48 Hours Sepsis New/Unexplained Change in Mental Status Sepsis Action Taken by Detention Medications Current Medication List: was personally reviewed by me Laboratory Data Attestation: I reviewed the patient's lab results. Result diagrams: 04/05/21 12:48 04/05/21 12:48 Lab Results 04/05/21 04/05/21 04/05/21 Range/Units 12:48 12:48 12:48 WBC (4.8-10.8) K/uL RBC 2.65 L (4.7-6.1) M/uL Hgb 9.3 L (14.0-18.0) g/dL Hct 27.5 L (42-52) % MCV 103.8 H (80-100) fL MCH 35.1 H (25-34) pg MCHC 33.8 (32-36) g/dL RDW Std Deviation 58.8 H (36.4-46.3) fL RDW Coeff of Joao 15.5 H (11.5-14.5) % Plt Count 33 L D (130-400) K/uL MPV 9.6 (7.4-10.4) fL Immature Gran % (Auto) Cancelled Neut % (Auto) Cancelled Lymph % (Auto) Cancelled [place] % (Auto) Cancelled Eos % (Auto) Cancelled Baso % (Auto) Cancelled Neut # (Auto) Cancelled Lymph # (Auto) Cancelled [place] # (Auto) Cancelled Eos # (Auto) Cancelled Baso # (Auto) Cancelled Immature Gran # (Auto) Cancelled Neutrophils % (Manual) Cancelled Band Neutrophils % Cancelled Lymphocytes % (Manual) Cancelled Prolymphocyte % Cancelled Reactive Lymphs % (Man) Cancelled Monocytes % (Manual) Cancelled Eosinophils % (Manual) Cancelled Basophils % (Manual) Cancelled Metamyelocytes % (Man) Cancelled Myelocytes % (Man) Cancelled Promyelocytes % (Man) Cancelled Blast Cells % (Manual) Cancelled Plasma Cell % (Manual) Cancelled Other Cells % Cancelled Nucleated RBC % Cancelled Neutrophils # (Manual) Cancelled Band Neutrophils # Cancelled Total Absolute Neuts Cancelled Lymphocytes # (Manual) Cancelled Prolymphocyte # Cancelled Reactive Lymphs # Cancelled Total Abs Lymphocytes Cancelled Monocytes # (Manual) Cancelled Eosinophils # (Manual) Cancelled Basophils # (Manual) Cancelled Metamyelocytes # (Man) Cancelled Myelocytes # (Manual) Cancelled Promyelocytes # (Man) Cancelled Blast Cells # (Man) Cancelled Plasma Cell # (Manual) Cancelled Other Cells # Cancelled Nucleated RBCs # (Man) Cancelled Hypersegmented Neuts Cancelled Hyposegmented Neuts Cancelled Hypogranular Neuts Cancelled Large Granular Lymphs Cancelled # Lrg Granular Lymphs Cancelled Hairy Cells Cancelled Smudge Cells Cancelled Toxic Granulation Cancelled Toxic Vacuolation Cancelled Dohle Bodies Cancelled Jenn Rods Cancelled Hypogranular Platelets Cancelled Clumped Platelets Cancelled Giant Platelets Cancelled Platelet Satelliting Cancelled RBC Morphology Cancelled Polychromasia Cancelled Hypochromasia Cancelled Poikilocytosis Cancelled Basophilic Stippling Cancelled Anisocytosis Cancelled Microcytosis Cancelled Macrocytosis Cancelled Spherocytes Cancelled Pappenheimer Bodies Cancelled Sickle Cells Cancelled Target Cells Cancelled Tear Drop Cells Cancelled Ovalocytes Cancelled Stomatocytes Cancelled [place]-Bamberg Bodies Cancelled Echinocytes Cancelled Acanthocytes (Spur) Cancelled Rouleaux Cancelled RBC Agglutinates Cancelled Schistocytes Cancelled RBC Morph Comment Cancelled Sezary Cell Cancelled PT 10.5 (9.0-12.0) Seconds INR 1.0 (0.9-1.1) APTT 27.1 (21.0-31.0) Seconds PTT Ratio 1.0 Sodium 144 (136-145) mmol/L Potassium 3.9 (3.5-5.1) mmol/L Chloride 113 H (98-107) mmol/L Carbon Dioxide 23 (21-32) mmol/L Anion Gap 8.0 (3-11) BUN 19 H (7-18) mg/dl Creatinine 1.12 (0.6-1.4) mg/dl Est Cr Clr Drug Dosing Not Reportable Est GFR ( Amer) 76.2 ml/min Est GFR (Non-Af Amer) 65.7 ml/min BUN/Creatinine Ratio 17.1 (10-20) Glucose 104 H (70-99) mg/dl Calcium 8.6 (8.5-10.1) mg/dl Phosphorus 3.4 D (2.5-4.9) mg/dl Magnesium 2.1 (1.8-2.4) mg/dl Total Bilirubin 0.5 (0.2-1) mg/dl AST 24 (15-37) U/L ALT 34 (12-78) U/L Alkaline Phosphatase 66 (45-117) U/L Troponin I 0.069 H* (0-0.045) ng/ml Total Protein 6.5 (6.4-8.2) gm/dl Albumin 3.3 L (3.4-5.0) gm/dl Globulin 3.2 (2.5-4.0) gm/dl Albumin/Globulin Ratio 1.0 (0.9-2) TSH 4.390 (0.300-4.500) uIu/ml COVID-19 Eval Order SARS-CoV-2 (PCR) (Negative) 04/05/21 04/05/21 Range/Units 15:12 15:12 WBC (4.8-10.8) K/uL RBC (4.7-6.1) M/uL Hgb (14.0-18.0) g/dL Hct (42-52) % MCV (80-100) fL MCH (25-34) pg MCHC (32-36) g/dL RDW Std Deviation (36.4-46.3) fL RDW Coeff of Joao (11.5-14.5) % Plt Count (130-400) K/uL MPV (7.4-10.4) fL Immature Gran % (Auto) Neut % (Auto) Lymph % (Auto) [place] % (Auto) Eos % (Auto) Baso % (Auto) Neut # (Auto) Lymph # (Auto) [place] # (Auto) Eos # (Auto) Baso # (Auto) Immature Gran # (Auto) Neutrophils % (Manual) Band Neutrophils % Lymphocytes % (Manual) Prolymphocyte % Reactive Lymphs % (Man) Monocytes % (Manual) Eosinophils % (Manual) Basophils % (Manual) Metamyelocytes % (Man) Myelocytes % (Man) Promyelocytes % (Man) Blast Cells % (Manual) Plasma Cell % (Manual) Other Cells % Nucleated RBC % Neutrophils # (Manual) Band Neutrophils # Total Absolute Neuts Lymphocytes # (Manual) Prolymphocyte # Reactive Lymphs # Total Abs Lymphocytes Monocytes # (Manual) Eosinophils # (Manual) Basophils # (Manual) Metamyelocytes # (Man) Myelocytes # (Manual) Promyelocytes # (Man) Blast Cells # (Man) Plasma Cell # (Manual) Other Cells # Nucleated RBCs # (Man) Hypersegmented Neuts Hyposegmented Neuts Hypogranular Neuts Large Granular Lymphs # Lrg Granular Lymphs Hairy Cells Smudge Cells Toxic Granulation Toxic Vacuolation Dohle Bodies Jenn Rods Hypogranular Platelets Clumped Platelets Giant Platelets Platelet Satelliting RBC Morphology Polychromasia Hypochromasia Poikilocytosis Basophilic Stippling Anisocytosis Microcytosis Macrocytosis Spherocytes Pappenheimer Bodies Sickle Cells Target Cells Tear Drop Cells Ovalocytes Stomatocytes [place]-Bamberg Bodies Echinocytes Acanthocytes (Spur) Rouleaux RBC Agglutinates Schistocytes RBC Morph Comment Sezary Cell PT (9.0-12.0) Seconds INR (0.9-1.1) APTT (21.0-31.0) Seconds PTT Ratio Sodium (136-145) mmol/L Potassium (3.5-5.1) mmol/L Chloride (98-107) mmol/L Carbon Dioxide (21-32) mmol/L Anion Gap (3-11) BUN (7-18) mg/dl Creatinine (0.6-1.4) mg/dl Est Cr Clr Drug Dosing Est GFR ( Amer) ml/min Est GFR (Non-Af Amer) ml/min BUN/Creatinine Ratio (10-20) Glucose (70-99) mg/dl Calcium (8.5-10.1) mg/dl Phosphorus (2.5-4.9) mg/dl Magnesium (1.8-2.4) mg/dl Total Bilirubin (0.2-1) mg/dl AST (15-37) U/L ALT (12-78) U/L Alkaline Phosphatase (45-117) U/L Troponin I (0-0.045) ng/ml Total Protein (6.4-8.2) gm/dl Albumin (3.4-5.0) gm/dl Globulin (2.5-4.0) gm/dl Albumin/Globulin Ratio (0.9-2) TSH (0.300-4.500) uIu/ml COVID-19 Eval Order Covid19 at [facility] SARS-CoV-2 (PCR) NEGATIVE (Negative) Administered Medications Discontinued Medications Ceftriaxone Sodium (Rocephin) 2,000 mg in 70 mls @ 140 mls/hr IV NOW STA Stop: 04/05/21 14:56 Last Infusion: 04/05/21 16:40 Dose: 0 mls/hr Documented by: [id number] Admin: 04/05/21 15:13 Dose: 140 mls/hr Documented by: [id number] Imaging Data Radiologist's Impression: Chest X-Ray 04/05/21 12:33 XR chest 1V portable CLINICAL HISTORY: Atypical chest pain TECHNIQUE: Single frontal radiograph of the chest was obtained. Comparison: None available at the time of this dictation. FINDINGS: A right port catheter is seen. Cardiomegaly is noted. Left hemidiaphragmatic elevation is noted with a focus of atelectasis at the lung base. Lungs are otherwise clear. No evidence of pleural effusion or pneumothorax. IMPRESSION: No acute chest disease. ACT 112: Negative or not required by law. Electronically signed by: Spike Murguia M.D. 04/05/2021 12:57 PM Discharge Plan Visit Data Chief Complaint: Arrhythmia/Palpitations Stated Complaint: IRREG [facility] ED Provider: John Toledo Discharge Problem: Elevated troponin I level, AML (acute myeloid leukemia), Thrombocytopenia, Obst ructive sleep apnea, Bradycardia Patient Disposition: Admitted As Inpatient Discharge Instructions Interventions: ED Discharge Assessment Last Done: 04/05/21 17:55
--- NOTE | 2021-04-05 12:58 | XRay Report ---
XR chest 1V portable CLINICAL HISTORY: Atypical chest pain TECHNIQUE: Single frontal radiograph of the chest was obtained. Comparison: None available at the time of this dictation. FINDINGS: A right port catheter is seen. Cardiomegaly is noted. Left hemidiaphragmatic elevation is noted with a focus of atelectasis at the lung base. Lungs are otherwise clear. No evidence of pleural effusion o r pneumothorax. IMPRESSION: No acute chest disease. ACT 112: Negative or not required by law. Electronically signed by: Spike Murguia M.D. 04/05/2021 12:57 PM
[2021-04-05 13:09] LABS: Partial Thromboplastin Time 27.1 Seconds (21.0-31.0); Prothrombin Time 10.5 Seconds (9.0-12.0)
[2021-04-05 13:18] LABS: Hematocrit (blood only) 27.5 % (42-52); Hemoglobin 9.3 g/dL (14.0-18.0); Mean Corpuscular Hemoglobin 35.1 pg (25-34); Mean Corpuscular Hgb Conc 33.8 g/dL (32-36); Mean Corpuscular Volume 103.8 fL (80-100); Mean Platelet Volume 9.6 fL (7.4-10.4); Platelet Count 33 K/uL (130-400); RDW Coefficient of Variation 15.5 % (11.5-14.5); RDW Standard Deviation 58.8 fL (36.4-46.3); Red Blood Count 2.65 M/uL (4.7-6.1)
[2021-04-05 13:25] LABS: Albumin Level 3.3 gm/dl (3.4-5.0); BUN Creatinine Ratio 17.1 (10-20); Blood Urea Nitrogen 19 mg/dl (7-18); Calcium 8.6 mg/dl (8.5-10.1); Carbon Dioxide 23 mmol/L (21-32); Chloride 113 mmol/L (98-107); Est GFR (African American) 76.2 ml/min; Est GFR (Non-African American) 65.7 ml/min; Glucose 104 mg/dl (70-99); Magnesium 2.1 mg/dl (1.8-2.4); Potassium 3.9 mmol/L (3.5-5.1); Sodium 144 mmol/L (136-145)
[2021-04-05 13:42] LABS: Alanine Aminotransferase 34 U/L (12-78); Alkaline Phosphatase 66 U/L (45-117); Aspartate Aminotransferase 24 U/L (15-37); Bilirubin,Total 0.5 mg/dl (0.2-1); Globulin 3.2 gm/dl (2.5-4.0); Phosphorus 3.4 mg/dl (2.5-4.9); Total Protein 6.5 gm/dl (6.4-8.2)
[2021-04-05 13:43] LABS: Troponin I 0.069 ng/ml (0-0.045)
[2021-04-05] MEDS ORDERED: cefTRIAXone SODIUM 2,000 MG/70 ML BAG IV STA (14:27)
--- NOTE | 2021-04-05 15:43 | History & Physical Report ---
Date of Service April 05, 2021 Assessment & Plan (1) Elevated troponin: (2) Bradycardia: (3) Cellulitis of chest wall: (4) AML (acute myeloid leukemia): (5) Thrombocytopenia: (6) Leukopenia due to antineoplastic chemotherapy: (7) Hypertension: (8) Dyslipidemia: (9) CAD (coronary artery disease): Plan: Episode of bradycardia during platelet transfusion resolved in ED but pt found to have elevated troponin and EKG changes. Also noted to be markedly leukopenic with chest wall cellulitis - Admit and monitor on telemetry for recurrent episodes of bradycardia - Serial troponins - Check ECHO - Consult cardiology - Broad spectrum antibiotics to cover cellulitis in the setting of leukopenia due to recent chemotherapy - Zosyn and Vanco - Blood culture, wound culture - Continue home meds as appropriate - Requested records from recent admission to [facility] and from outpatient oncologist Pt seen and reviewed with attending physician, Dr. Prieto. Plan of care discussed and as outlined above. DVT Prophylaxis: SCDs, no AC due to thrombocytopenia Code Status: Full Code Melvina Palomares PA-C History of Present Illness Chief Complaint: low heart rate during platelet transfusion Primary Care Provider: Elba Yañez PA-C This is a 70 y/o male with a PMH of AML, CAD, prior RCA stent, HTN, dyslipidemia, spinal stenosis, ROBERT, pulmonary HTN, and prior GI bleed who presented to the ED from the infusion center with transient bradycardia. The pt has a hx of AML for which he follows with Dr. Chowdhury in the [facility]. He was recently admitted at [facility] for ten days of chemotherapy - discharged on 03/27. Labs being followed closely post-chemo. On Monday (3 days ago), he reports that his platelets were low so he received "a small bag" of platelets, but today he received "a larger bag" of platelets. During the platelet transfusion this morning, he was noted to be bradycardic in the 30s so he was referred to the ED for additional evaluation. He reports that he does not recall his HR ever dropping before, and he denies associated symptoms with this episode. His HR is now back in the 70s. Specifically, he denies chest pain, palpitations, SOB, cough, dizziness, or syncope. He also recently had a port placed at [facility] but he developed some erythema over it within a few days. Initially it was thought due to a local reaction to the adhesive from the dressing but it has persisted so he was started on Augmentin for possible cellulitis on Monday (2 days ago). He denies fevers, chills, sweats, drainage from the area. He reports that they did not access the port since this redness developed. He has not noted significant improvement on the Augmentin and in fact, thinks it might be slightly worse. Pt was vaccinated for [employer] x 2 doses (08/31 and 09/21/20). Allergies Allergy/AdvReac Type Severity Reaction Status Date / Time No Known Allergies Allergy Verified 04/05/21 13:23 Home Medications Medication Instructions Recorded Confirmed Type metoprolol succinate 50 mg 50 mg PO DAILY 30 Days #15 tab 08/17/17 04/05/21 History tablet,extended release 24 hr (Toprol XL) acyclovir 400 mg tablet 400 mg PO TID 03/31/21 04/05/21 History allopurinol 300 mg tablet 300 mg PO DAILY 03/31/21 04/05/21 History amlodipine 5 mg tablet 5 mg PO DAILY 03/31/21 04/05/21 History ascorbic acid (vitamin C) 500 mg 500 mg PO BID 03/31/21 04/05/21 History tablet ezetimibe 10 mg tablet 10 mg PO DAILY 03/31/21 04/05/21 History fluticasone 250 mcg-salmeterol 50 1 inh INHALATION BID 03/31/21 04/05/21 History mcg/dose blistr powdr for inhalation fluticasone prop.50 mcg 1 ea INTRANASAL DAILY 03/31/21 04/05/21 History spray,suspen-sod.chloride 0.9% nasal spray kit levofloxacin 500 mg tablet 500 mg PO DAILY 03/31/21 04/05/21 History loratadine 10 mg tablet 10 mg PO DAILY 03/31/21 04/05/21 History ondansetron 4 mg disintegrating 4 mg PO Q8H PRN 03/31/21 04/05/21 History tablet posaconazole 100 mg tablet,delayed 300 mg PO DAILY 03/31/21 04/05/21 History release rosuvastatin 10 mg tablet 10 mg PO DAILY 03/31/21 04/05/21 History tamsulosin 0.4 mg capsule 0.4 mg PO DAILY 03/31/21 04/05/21 History venetoclax 10 mg tablet 70 mg PO DAILY 03/31/21 04/05/21 History amoxicillin 875 mg-potassium 1 tab PO BIDM #10 tab 04/10/21 Rx clavulanate 125 mg tablet (Augmentin) doxycycline hyclate 100 mg capsule 100 mg PO BID #10 cap 04/10/21 Rx Past Med/Surg History Medical History AML (acute myeloid leukemia) Asthma CAD (coronary artery disease) Chronic diastolic CHF (congestive heart failure) Dyslipidemia Gastric ulcer gastric ulcers due to naproxsyn bleeding Hypertension Obstructive sleep apnea Pulmonary HTN Spinal stenosis Surgical History Hx of appendectomy Hx of hernia repair Stented coronary artery Family History Mother Hx of diabetes mellitus Social History Smoking Status: Never smoker Hx Alcohol Use: No Hx Substance Use: No Preferred Language: Montserratian Communication Ability: Effective Visual Impairment: No Limitations Hearing Ability: Normal Pelt [place]ter Required: No Beliefs That Will Affect Care: None marital status: Single Current Living Situation: Alone current occupational status: retired Feels Safe at Home: Yes Childhood Exposure to Second-Hand Smoke: No (secondhand smoke while in the [employer]) caffeine: Yes (coffee one a day) Dental Care, Regularly: Yes Physical Activity Frequency: 1-2 Times per Week Seatbelt Use: always Sunscreen Use: No Assistive Devices: None Review of Systems Review of Systems: All systems reviewed & are unremarkable except as noted in HPI & below Constitutional: no fever, no chills, no sweats and no anorexia Eyes: no diplopia and no worsening vision Ear, Nose, Mouth, Throat: no nasal congestion Respiratory: no cough, no dyspnea and no wheezing Cardiovascular: + edema; no chest pain, no palpitations, no lightheadedness and no calf pain Gastrointestinal: + diarrhea/loose stools (one episode); no abdominal pain, no nausea, no vomiting and no blood in stools Genitourinary: no dysuria, no difficulty urinating or no hematuria Musculoskeletal: no back pain and no neck pain Integumentary: + erythema (over port site on chest - see HPI) Neurologic: no tremor(s), no seizure-like activity and no headache(s) Physical Exam Constitutional: well developed and well nourished; no acute distress Eyes: + anicteric sclerae Neck: trachea midline Respiratory: no respiratory distress and no labored breathing Auscultation: lungs clear to auscultation bilaterally; no rales, no rhonchi and no wheezes Cardiovascular: Rate/Rhythm: regular rate (with frequent ectopy) Heart Sounds: no gallop, no murmur and no cardiac rub Vessels: dorsalis pedis pulses present and radial pulses present Extremities: + edema (1+ pitting bilateral LE) Gastrointestinal (Abdomen): Inspection/Auscultation: normal bowel sounds; abdomen not distended Percussion/Palpation: abdomen soft; abdomen nontender Musculoskeletal: Head/Neck/Chest: normocephalic, head atraumatic and neck supple Skin: 4 x 4 cm area of erythema overlying right chest wall port site with associated mild warmth, central scabbed area, tenderness superior aspect of port Neurologic: moves all extremities; no focal motor deficits Psychiatric: A+Ox3, euthymic affect Results & Data Results & Data ([facility]) Vital Signs (Past 12 Hours) Vital Signs Temp Pulse Pulse Resp BP BP Pulse Ox 04/05/21 15:00 77 14 131/80 97 04/05/21 14:30 76 17 146/96 H 97 04/05/21 14:22 75 20 152/82 H 97 04/05/21 14:13 84 18 95 04/05/21 13:30 77 13 134/79 96 04/05/21 13:23 75 16 97 04/05/21 13:17 77 20 141/90 H 96 04/05/21 13:00 77 17 141/90 H 97 04/05/21 12:43 79 20 98 04/05/21 12:23 35.9 C L 78 20 151/80 H 97 Laboratory Results Laboratory Results - last 24 hr 04/05/21 04/05/21 04/05/21 12:48 12:48 12:48 WBC RBC 2.65 L Hgb 9.3 L Hct 27.5 L MCV 103.8 H MCH 35.1 H MCHC 33.8 RDW Std Deviation 58.8 H RDW Coeff of Joao 15.5 H Plt Count 33 L D MPV 9.6 Immature Gran % (Auto) Cancelled Neut % (Auto) Cancelled Lymph % (Auto) Cancelled [place] % (Auto) Cancelled Eos % (Auto) Cancelled Baso % (Auto) Cancelled Neut # (Auto) Cancelled Lymph # (Auto) Cancelled [place] # (Auto) Cancelled Eos # (Auto) Cancelled Baso # (Auto) Cancelled Immature Gran # (Auto) Cancelled Neutrophils % (Manual) Cancelled Band Neutrophils % Cancelled Lymphocytes % (Manual) Cancelled Prolymphocyte % Cancelled Reactive Lymphs % (Man) Cancelled Monocytes % (Manual) Cancelled Eosinophils % (Manual) Cancelled Basophils % (Manual) Cancelled Metamyelocytes % (Man) Cancelled Myelocytes % (Man) Cancelled Promyelocytes % (Man) Cancelled Blast Cells % (Manual) Cancelled Plasma Cell % (Manual) Cancelled Other Cells % Cancelled Nucleated RBC % Cancelled Neutrophils # (Manual) Cancelled Band Neutrophils # Cancelled Total Absolute Neuts Cancelled Lymphocytes # (Manual) Cancelled Prolymphocyte # Cancelled Reactive Lymphs # Cancelled Total Abs Lymphocytes Cancelled Monocytes # (Manual) Cancelled Eosinophils # (Manual) Cancelled Basophils # (Manual) Cancelled Metamyelocytes # (Man) Cancelled Myelocytes # (Manual) Cancelled Promyelocytes # (Man) Cancelled Blast Cells # (Man) Cancelled Plasma Cell # (Manual) Cancelled Other Cells # Cancelled Nucleated RBCs # (Man) Cancelled Hypersegmented Neuts Cancelled Hyposegmented Neuts Cancelled Hypogranular Neuts Cancelled Large Granular Lymphs Cancelled # Lrg Granular Lymphs Cancelled Hairy Cells Cancelled Smudge Cells Cancelled Toxic Granulation Cancelled Toxic Vacuolation Cancelled Dohle Bodies Cancelled Jenn Rods Cancelled Hypogranular Platelets Cancelled Clumped Platelets Cancelled Giant Platelets Cancelled Platelet Satelliting Cancelled RBC Morphology Cancelled Polychromasia Cancelled Hypochromasia Cancelled Poikilocytosis Cancelled Basophilic Stippling Cancelled Anisocytosis Cancelled Microcytosis Cancelled Macrocytosis Cancelled Spherocytes Cancelled Pappenheimer Bodies Cancelled Sickle Cells Cancelled Target Cells Cancelled Tear Drop Cells Cancelled Ovalocytes Cancelled Stomatocytes Cancelled [place] Bodies Cancelled Echinocytes Cancelled Acanthocytes (Spur) Cancelled Rouleaux Cancelled RBC Agglutinates Cancelled Schistocytes Cancelled RBC Morph Comment Cancelled Sezary Cell Cancelled PT 10.5 INR 1.0 APTT 27.1 PTT Ratio 1.0 Sodium 144 Potassium 3.9 Chloride 113 H Carbon Dioxide 23 Anion Gap 8.0 BUN 19 H Creatinine 1.12 Est Cr Clr Drug Dosing Not Reportable Est GFR ( Amer) 76.2 Est GFR (Non-Af Amer) 65.7 BUN/Creatinine Ratio 17.1 Glucose 104 H Calcium 8.6 Phosphorus 3.4 D Magnesium 2.1 Total Bilirubin 0.5 AST 24 ALT 34 Alkaline Phosphatase 66 Troponin I 0.069 H* Total Protein 6.5 Albumin 3.3 L Globulin 3.2 Albumin/Globulin Ratio 1.0 TSH 4.390 COVID-19 Eval Order SARS-CoV-2 (PCR) 04/05/21 04/05/21 15:12 15:12 WBC RBC Hgb Hct MCV MCH MCHC RDW Std Deviation RDW Coeff of Joao Plt Count MPV Immature Gran % (Auto) Neut % (Auto) Lymph % (Auto) [place] % (Auto) Eos % (Auto) Baso % (Auto) Neut # (Auto) Lymph # (Auto) [place] # (Auto) Eos # (Auto) Baso # (Auto) Immature Gran # (Auto) Neutrophils % (Manual) Band Neutrophils % Lymphocytes % (Manual) Prolymphocyte % Reactive Lymphs % (Man) Monocytes % (Manual) Eosinophils % (Manual) Basophils % (Manual) Metamyelocytes % (Man) Myelocytes % (Man) Promyelocytes % (Man) Blast Cells % (Manual) Plasma Cell % (Manual) Other Cells % Nucleated RBC % Neutrophils # (Manual) Band Neutrophils # Total Absolute Neuts Lymphocytes # (Manual) Prolymphocyte # Reactive Lymphs # Total Abs Lymphocytes Monocytes # (Manual) Eosinophils # (Manual) Basophils # (Manual) Metamyelocytes # (Man) Myelocytes # (Manual) Promyelocytes # (Man) Blast Cells # (Man) Plasma Cell # (Manual) Other Cells # Nucleated RBCs # (Man) Hypersegmented Neuts Hyposegmented Neuts Hypogranular Neuts Large Granular Lymphs # Lrg Granular Lymphs Hairy Cells Smudge Cells Toxic Granulation Toxic Vacuolation Dohle Bodies Jenn Rods Hypogranular Platelets Clumped Platelets Giant Platelets Platelet Satelliting RBC Morphology Polychromasia Hypochromasia Poikilocytosis Basophilic Stippling Anisocytosis Microcytosis Macrocytosis Spherocytes Pappenheimer Bodies Sickle Cells Target Cells Tear Drop Cells Ovalocytes Stomatocytes [place] Bodies Echinocytes Acanthocytes (Spur) Rouleaux RBC Agglutinates Schistocytes RBC Morph Comment Sezary Cell PT INR APTT PTT Ratio Sodium Potassium Chloride Carbon Dioxide Anion Gap BUN Creatinine Est Cr Clr Drug Dosing Est GFR ( Amer) Est GFR (Non-Af Amer) BUN/Creatinine Ratio Glucose Calcium Phosphorus Magnesium Total Bilirubin AST ALT Alkaline Phosphatase Troponin I Total Protein Albumin Globulin Albumin/Globulin Ratio TSH COVID-19 Eval Order Covid19 at [facility] SARS-CoV-2 (PCR) NEGATIVE Diagnostic Findings Chest X-ray 04/05/21 - IMPRESSION: No acute chest disease. Medications Administered Discontinued Medications Ceftriaxone Sodium (Rocephin) 2,000 mg in 70 mls @ 140 mls/hr IV NOW STA Stop: 04/05/21 14:56 Last Admin: 04/05/21 15:13 Dose: 140 mls/hr Documented by: [id number] Code Status & VTE Plan VTE Prophylaxis Plan VTE Prophylaxis will be ordered: Yes Supervising Physician Co-Signing Physician Notes Pt seen and examined by me, care coordinated with Annie Palomares PA-C, pls refer to her note above for further detail. Pt is a 70 y/o male w/ AML, CAD, prior RCA stent, HTN, dyslipidemia, spinal stenosis, ROBERT, pulmonary HTN, and prior GI bleed who presents from the infusion center with transient bradycardia. Pt was recently admitted at [facility] for ten days of chemotherapy - discharged on 03/27. He also had a port placed at [facility] but he developed erythema over it within a few days, currently on Augmentin for that, pt did not notice any improvement though. During the platelet transfusion this morning, he was noted to be bradycardic in the 30s so he was referred to the ED for additional evaluation. Denies any fever, chills, chest pain, shortness of breath. Currently sitting up in bed in NAD. He is alert oriented, answering questions appropriately. Heart sounds regular. Breath sounds clear w/o any wheezing, rhonchi, crackles. Abdomen soft, nontender, nondistended. No sign. LE edema noted. Pt moves extremities spontaneously. Skin is warm, dry, well perfused. There is erythema noted over pt's port (chest), also tender to palpation. Blood cultures ordered. Will cont. with broad spectrum antibiotics. Monitor on tele. echo ordered. will discuss further w/ cardiology pt's episode of bradycardia. Records requested from [facility] as well as Dr. Chowdhury (pt's primary oncologist) Dawna Prieto MD
[2021-04-05] MEDS ORDERED: VANCOMYCIN CONSULT ACTIVE PRN (17:22)
[2021-04-05] MEDS ORDERED: PIPERACILLIN/TAZOBACTAM 4.5 GM in DEXTROSE 5% 100 ML IV ONE (17:22)
[2021-04-05] MEDS ORDERED: PIPERACILL/TAZOBAC CONSULT ACTIVE PRN (17:22)
[2021-04-05] MEDS ORDERED: NITROGLYCERIN SL 0.4 MG/TAB TAB SL PRN (18:06)
[2021-04-05] MEDS ORDERED: VANCOMYCIN HCL 2,500 MG in SODIUM CHLORIDE 0.9% 500 ML IV STA (18:38)
[2021-04-05] MEDS: ACYCLOVIR 400 MG TAB PO SCH (19:39)
[2021-04-05] MEDS: ASCORBIC ACID 500 MG TAB PO SCH (19:40)
--- NOTE | 2021-04-05 20:48 | Pharmacy Report ---
Pharmacy Abx Dose Short Note - Date of Service April 05, 2021 - Assessment & Plan Assessment * 70 year old M receiving VANCOMYCIN + ZOSYN for treatment of chest wall cellulitis in the setting of immunocompromise (AML, chemotherapy, leukopenia). Plan Vancomycin * Patient meets criteria for vancomycin AUC dosing nomogram * AUC/PENNIE is the preferred PK/PD target for vancomycin * Target AUC/PENNIE = 400-600 * Trough level of 10-20 mcg/mL is predicted to achieve target AUC/PENNIE * AUC guided dosing is effective and associated with decreased risk of nephrotoxicity * Loading dose: 2500mg (~21mg/kg) x 1 * Maintenance dose: 1000mg Q 12 hours * Will check trough level wtih 3rd or 4th dose Zosyn * eCrCl > 20, BMI > 35, 4.5mg ext-infusion Q 8 hrs indicated Pharmacy will continue to follow and will adjust dose/frequency as necessary. Thank you.
[2021-04-05] MEDS: [UNRECOGNIZED DRUG - REMARK] SCH (23:24)
[2021-04-05] MEDS: PIPERACILLIN/TAZOBACTAM 4.5 GM in DEXTROSE 5% 100 ML IV SCH (23:28)
[2021-04-06 05:12] LABS: Albumin Level 2.8 gm/dl (3.4-5.0); Calcium 8.3 mg/dl (8.5-10.1); Creatinine Clr Calc Pharmacy 85.2 ml/min; Est GFR (African American) 81.4 ml/min; Est GFR (Non-African American) 70.3 ml/min; Potassium 3.8 mmol/L (3.5-5.1)
[2021-04-06 05:23] LABS: Bilirubin,Total 0.6 mg/dl (0.2-1); Globulin 2.8 gm/dl (2.5-4.0); Total Protein 5.6 gm/dl (6.4-8.2); Troponin I 0.081 ng/ml (0-0.045)
[2021-04-06 05:39] LABS: Hemoglobin 8.5 g/dL (14.0-18.0); Mean Corpuscular Hemoglobin 34.8 pg (25-34); Mean Corpuscular Volume 102.5 fL (80-100); Platelet Count 28 K/uL (130-400); RDW Coefficient of Variation 15.1 % (11.5-14.5); RDW Standard Deviation 56.4 fL (36.4-46.3); Red Blood Count 2.44 M/uL (4.7-6.1); White Blood Count 0.58 K/uL (4.8-10.8)
[2021-04-06 05:41] LABS: Lymphocytes # (auto) 0.57 K/uL (1.2-3.4); Lymphocytes % (auto) 98.3 %; Monocytes # (auto) 0.01 K/uL (0.11-0.59); Monocytes % (auto) 1.7 %; Ovalocytes 1+; Platelet Estimate SIGNIFIC DECREASED (Normal); Tear Drop Cells 1+
[2021-04-06] MEDS: VANCOMYCIN HCL 1,000 MG in SODIUM CHLORIDE 0.9% 250 ML IV SCH ×2 (05:49→17:57)
--- NOTE | 2021-04-06 07:53 | Hospitalist Progress Note ---
Date of Service April 06, 2021 Assessment & Plan (1) Elevated troponin: (2) Bradycardia: (3) Cellulitis of chest wall: (4) AML (acute myeloid leukemia): (5) Thrombocytopenia: (6) Leukopenia due to antineoplastic chemotherapy: (7) Hypertension: (8) Dyslipidemia: (9) CAD (coronary artery disease): Plan: Episode of bradycardia during platelet transfusion resolved in ED but pt found to have elevated troponin and EKG changes. Also noted to be markedly leukopenic with chest wall cellulitis - monitored overnight on telemetry for possible recurrent episodes of bradycardia - Serial troponins ordered - Echo ordered - Cardiology consulted, appreciate their input Chest wall cellulitis/ over port in the setting of neutropenia - now seems improved from yesterday - pt was on Augmnetin at home for this, however w/o improvement - blood cultx obtained - pending, wound cultx - pending - pt neutropenic (secondary to chemotherapy), cont. neutropenic precautions - cont. broad spectrum antibiotics to cover cellulitis in the setting of l eukopenia due to recent chemotherapy - Zosyn and Vanco, may need to further discuss w/ ID - Continue home meds as appropriate - Requested records from recent admission to [facility] and from outpatient oncologist DVT Prophylaxis: SCDs, no AC due to thrombocytopenia Code Status: Full Code Admission and Anticipated Discharge Date Admission Date: April 05, 2021 Subjective Pt seen in follow up of neutropenia, cellulitis,bradycardia Currently sitting up in bed in NAD cellulitis over port seems improved no significant bradycardia arrhythmia over night Currently pt feels well, denies fever, chills, chest pain, shortness of breath Review of Systems Review of Systems: All systems reviewed & are unremarkable except as noted in Subjective Physical Exam Physical Exam: Constitutional: well developed and well nourished M, no acute distress Eyes: + anicteric sclerae Neck: trachea midline Respiratory: no respiratory distress and no labored breathing, lungs clear to auscultation bilaterally; no rales, no rhonchi and no wheezes Cardiovascular: Rate/Rhythm: regular rate Heart Sounds: no murmur noted, Extremities: trace/1+ pitting bilateral LE Gastrointestinal (Abdomen): normal bowel sounds; abdomen not distended Percussion/Palpation: abdomen soft; abdomen nontender Musculoskeletal: Head/Neck/Chest: normocephalic, head atraumatic and neck supple Skin: 4 x 4 cm area of erythema overlying right chest wall port site with associated mild warmth (erythema decreased), central scabbed area, tenderness superior aspect of port Neurologic: moves all extremities; no focal motor deficits Psychiatric: A+Ox3, euthymic affect Results & Data Results & Data ([facility]) Vital Signs (Past 12 Hours) Vital Signs Temp Pulse Resp BP Pulse Ox 04/06/21 04:00 37 C 71 19 132/85 97 04/06/21 00:00 37.1 C 76 18 131/66 96 04/05/21 20:00 36.7 C 78 15 144/76 H 99 Laboratory Results 04/06/21 04/06/21 04/06/21 Range/Units 04:25 04:25 00:27 WBC 0.58 L* (4.8-10.8) K/uL RBC 2.44 L (4.7-6.1) M/uL Hgb 8.5 L (14.0-18.0) g/dL Hct 25.0 L (42-52) % MCV 102.5 H (80-100) fL MCH 34.8 H (25-34) pg MCHC 34.0 (32-36) g/dL RDW Std Deviation 56.4 H (36.4-46.3) fL RDW Coeff of Joao 15.1 H (11.5-14.5) % Plt Count 28 L* (130-400) K/uL MPV (7.4-10.4) fL Immature Gran % (Auto) 0.0 Neut % (Auto) 0.0 Lymph % (Auto) 98.3 Iroquois % (Auto) 1.7 Eos % (Auto) 0.0 Baso % (Auto) 0.0 Neut # (Auto) 0.00 L* Lymph # (Auto) 0.57 L Iroquois # (Auto) 0.01 L Eos # (Auto) 0.00 Baso # (Auto) 0.00 Immature Gran # (Auto) 0.00 Neutrophils % (Manual) Band Neutrophils % Lymphocytes % (Manual) Prolymphocyte % Reactive Lymphs % (Man) Monocytes % (Manual) Eosinophils % (Manual) Basophils % (Manual) Metamyelocytes % (Man) Myelocytes % (Man) Promyelocytes % (Man) Blast Cells % (Manual) Plasma Cell % (Manual) Other Cells % Nucleated RBC % Neutrophils # (Manual) Band Neutrophils # Total Absolute Neuts Lymphocytes # (Manual) Prolymphocyte # Reactive Lymphs # Total Abs Lymphocytes Monocytes # (Manual) Eosinophils # (Manual) Basophils # (Manual) Metamyelocytes # (Man) Myelocytes # (Manual) Promyelocytes # (Man) Blast Cells # (Man) Plasma Cell # (Manual) Other Cells # Nucleated RBCs # (Man) Hypersegmented Neuts Hyposegmented Neuts Hypogranular Neuts Large Granular Lymphs # Lrg Granular Lymphs Hairy Cells Smudge Cells Toxic Granulation Toxic Vacuolation Dohle Bodies Jenn Rods Platelet Estimate SIGNIFIC DECREASED (Normal) Hypogranular Platelets Clumped Platelets Giant Platelets Platelet Satelliting RBC Morphology Polychromasia Hypochromasia Poikilocytosis Basophilic Stippling Anisocytosis Microcytosis Macrocytosis Spherocytes Pappenheimer Bodies Sickle Cells Target Cells Tear Drop Cells 1+ Ovalocytes 1+ Stomatocytes Goetz-Peridot Bodies Echinocytes Acanthocytes (Spur) Rouleaux RBC Agglutinates Schistocytes RBC Morph Comment Sezary Cell PT (9.0-12.0) Seconds INR (0.9-1.1) APTT (21.0-31.0) Seconds PTT Ratio Sodium 143 (136-145) mmol/L Potassium 3.8 (3.5-5.1) mmol/L Chloride 112 H (98-107) mmol/L Carbon Dioxide 26 (21-32) mmol/L Anion Gap 5.0 (3-11) BUN 15 (7-18) mg/dl Creatinine 1.06 (0.6-1.4) mg/dl Est Cr Clr Drug Dosing 85.2 Est GFR ( Amer) 81.4 ml/min Est GFR (Non-Af Amer) 70.3 ml/min BUN/Creatinine Ratio 14.0 (10-20) Glucose 105 H (70-99) mg/dl Calcium 8.3 L (8.5-10.1) mg/dl Phosphorus (2.5-4.9) mg/dl Magnesium (1.8-2.4) mg/dl Total Bilirubin 0.6 (0.2-1) mg/dl AST 21 (15-37) U/L ALT 29 (12-78) U/L Alkaline Phosphatase 59 (45-117) U/L Troponin I 0.081 H* 0.071 H* (0-0.045) ng/ml Total Protein 5.6 L (6.4-8.2) gm/dl Albumin 2.8 L (3.4-5.0) gm/dl Globulin 2.8 (2.5-4.0) gm/dl Albumin/Globulin Ratio 1.0 (0.9-2) TSH (0.300-4.500) uIu/ml COVID-19 Eval Order SARS-CoV-2 (PCR) (Negative) 04/05/21 04/05/21 04/05/21 Range/Units 19:10 15:12 15:12 WBC (4.8-10.8) K/uL RBC (4.7-6.1) M/uL Hgb (14.0-18.0) g/dL Hct (42-52) % MCV (80-100) fL MCH (25-34) pg MCHC (32-36) g/dL RDW Std Deviation (36.4-46.3) fL RDW Coeff of Joao (11.5-14.5) % Plt Count (130-400) K/uL MPV (7.4-10.4) fL Immature Gran % (Auto) Neut % (Auto) Lymph % (Auto) Iroquois % (Auto) Eos % (Auto) Baso % (Auto) Neut # (Auto) Lymph # (Auto) Iroquois # (Auto) Eos # (Auto) Baso # (Auto) Immature Gran # (Auto) Neutrophils % (Manual) Band Neutrophils % Lymphocytes % (Manual) Prolymphocyte % Reactive Lymphs % (Man) Monocytes % (Manual) Eosinophils % (Manual) Basophils % (Manual) Metamyelocytes % (Man) Myelocytes % (Man) Promyelocytes % (Man) Blast Cells % (Manual) Plasma Cell % (Manual) Other Cells % Nucleated RBC % Neutrophils # (Manual) Band Neutrophils # Total Absolute Neuts Lymphocytes # (Manual) Prolymphocyte # Reactive Lymphs # Total Abs Lymphocytes Monocytes # (Manual) Eosinophils # (Manual) Basophils # (Manual) Metamyelocytes # (Man) Myelocytes # (Manual) Promyelocytes # (Man) Blast Cells # (Man) Plasma Cell # (Manual) Other Cells # Nucleated RBCs # (Man) Hypersegmented Neuts Hyposegmented Neuts Hypogranular Neuts Large Granular Lymphs # Lrg Granular Lymphs Hairy Cells Smudge Cells Toxic Granulation Toxic Vacuolation Dohle Bodies Jenn Rods Platelet Estimate (Normal) Hypogranular Platelets Clumped Platelets Giant Platelets Platelet Satelliting RBC Morphology Polychromasia Hypochromasia Poikilocytosis Basophilic Stippling Anisocytosis Microcytosis Macrocytosis Spherocytes Pappenheimer Bodies Sickle Cells Target Cells Tear Drop Cells Ovalocytes Stomatocytes Goetz-Peridot Bodies Echinocytes Acanthocytes (Spur) Rouleaux RBC Agglutinates Schistocytes RBC Morph Comment Sezary Cell PT (9.0-12.0) Seconds INR (0.9-1.1) APTT (21.0-31.0) Seconds PTT Ratio Sodium (136-145) mmol/L Potassium (3.5-5.1) mmol/L Chloride (98-107) mmol/L Carbon Dioxide (21-32) mmol/L Anion Gap (3-11) BUN (7-18) mg/dl Creatinine (0.6-1.4) mg/dl Est Cr Clr Drug Dosing Est GFR ( Amer) ml/min Est GFR (Non-Af Amer) ml/min BUN/Creatinine Ratio (10-20) Glucose (70-99) mg/dl Calcium (8.5-10.1) mg/dl Phosphorus (2.5-4.9) mg/dl Magnesium (1.8-2.4) mg/dl Total Bilirubin (0.2-1) mg/dl AST (15-37) U/L ALT (12-78) U/L Alkaline Phosphatase (45-117) U/L Troponin I 0.065 H* (0-0.045) ng/ml Total Protein (6.4-8.2) gm/dl Albumin (3.4-5.0) gm/dl Globulin (2.5-4.0) gm/dl Albumin/Globulin Ratio (0.9-2) TSH (0.300-4.500) uIu/ml COVID-19 Eval Order Covid19 at [facility] SARS-CoV-2 (PCR) NEGATIVE (Negative) 04/05/21 04/05/21 04/05/21 Range/Units 12:48 12:48 12:48 WBC (4.8-10.8) K/uL RBC 2.65 L (4.7-6.1) M/uL Hgb 9.3 L (14.0-18.0) g/dL Hct 27.5 L (42-52) % MCV 103.8 H (80-100) fL MCH 35.1 H (25-34) pg MCHC 33.8 (32-36) g/dL RDW Std Deviation 58.8 H (36.4-46.3) fL RDW Coeff of Joao 15.5 H (11.5-14.5) % Plt Count 33 L D (130-400) K/uL MPV 9.6 (7.4-10.4) fL Immature Gran % (Auto) Cancelled Neut % (Auto) Cancelled Lymph % (Auto) Cancelled Iroquois % (Auto) Cancelled Eos % (Auto) Cancelled Baso % (Auto) Cancelled Neut # (Auto) Cancelled Lymph # (Auto) Cancelled Iroquois # (Auto) Cancelled Eos # (Auto) Cancelled Baso # (Auto) Cancelled Immature Gran # (Auto) Cancelled Neutrophils % (Manual) Cancelled Band Neutrophils % Cancelled Lymphocytes % (Manual) Cancelled Prolymphocyte % Cancelled Reactive Lymphs % (Man) Cancelled Monocytes % (Manual) Cancelled Eosinophils % (Manual) Cancelled Basophils % (Manual) Cancelled Metamyelocytes % (Man) Cancelled Myelocytes % (Man) Cancelled Promyelocytes % (Man) Cancelled Blast Cells % (Manual) Cancelled Plasma Cell % (Manual) Cancelled Other Cells % Cancelled Nucleated RBC % Cancelled Neutrophils # (Manual) Cancelled Band Neutrophils # Cancelled Total Absolute Neuts Cancelled Lymphocytes # (Manual) Cancelled Prolymphocyte # Cancelled Reactive Lymphs # Cancelled Total Abs Lymphocytes Cancelled Monocytes # (Manual) Cancelled Eosinophils # (Manual) Cancelled Basophils # (Manual) Cancelled Metamyelocytes # (Man) Cancelled Myelocytes # (Manual) Cancelled Promyelocytes # (Man) Cancelled Blast Cells # (Man) Cancelled Plasma Cell # (Manual) Cancelled Other Cells # Cancelled Nucleated RBCs # (Man) Cancelled Hypersegmented Neuts Cancelled Hyposegmented Neuts Cancelled Hypogranular Neuts Cancelled Large Granular Lymphs Cancelled # Lrg Granular Lymphs Cancelled Hairy Cells Cancelled Smudge Cells Cancelled Toxic Granulation Cancelled Toxic Vacuolation Cancelled Dohle Bodies Cancelled Jenn Rods Cancelled Platelet Estimate (Normal) Hypogranular Platelets Cancelled Clumped Platelets Cancelled Giant Platelets Cancelled Platelet Satelliting Cancelled RBC Morphology Cancelled Polychromasia Cancelled Hypochromasia Cancelled Poikilocytosis Cancelled Basophilic Stippling Cancelled Anisocytosis Cancelled Microcytosis Cancelled Macrocytosis Cancelled Spherocytes Cancelled Pappenheimer Bodies Cancelled Sickle Cells Cancelled Target Cells Cancelled Tear Drop Cells Cancelled Ovalocytes Cancelled Stomatocytes Cancelled Goetz-Peridot Bodies Cancelled Echinocytes Cancelled Acanthocytes (Spur) Cancelled Rouleaux Cancelled RBC Agglutinates Cancelled Schistocytes Cancelled RBC Morph Comment Cancelled Sezary Cell Cancelled PT 10.5 (9.0-12.0) Seconds INR 1.0 (0.9-1.1) APTT 27.1 (21.0-31.0) Seconds PTT Ratio 1.0 Sodium 144 (136-145) mmol/L Potassium 3.9 (3.5-5.1) mmol/L Chloride 113 H (98-107) mmol/L Carbon Dioxide 23 (21-32) mmol/L Anion Gap 8.0 (3-11) BUN 19 H (7-18) mg/dl Creatinine 1.12 (0.6-1.4) mg/dl Est Cr Clr Drug Dosing Not Reportable Est GFR ( Amer) 76.2 ml/min Est GFR (Non-Af Amer) 65.7 ml/min BUN/Creatinine Ratio 17.1 (10-20) Glucose 104 H (70-99) mg/dl Calcium 8.6 (8.5-10.1) mg/dl Phosphorus 3.4 D (2.5-4.9) mg/dl Magnesium 2.1 (1.8-2.4) mg/dl Total Bilirubin 0.5 (0.2-1) mg/dl AST 24 (15-37) U/L ALT 34 (12-78) U/L Alkaline Phosphatase 66 (45-117) U/L Troponin I 0.069 H* (0-0.045) ng/ml Total Protein 6.5 (6.4-8.2) gm/dl Albumin 3.3 L (3.4-5.0) gm/dl Globulin 3.2 (2.5-4.0) gm/dl Albumin/Globulin Ratio 1.0 (0.9-2) TSH 4.390 (0.300-4.500) uIu/ml COVID-19 Eval Order SARS-CoV-2 (PCR) (Negative) Medications Administered Current Inpatient Medications Acetaminophen (Acetaminophen 325 Mg Tab) 650 mg PO Q4H PRN PRN Reason: Pain or Fever Stop: 05/05/21 18:05 Acyclovir (Acyclovir 400 Mg Tab) 400 mg PO TID [facility]IONA Stop: 05/05/21 20:59 Last Admin: 04/05/21 19:39 Dose: 400 mg Documented by: Allopurinol (Allopurinol 300 Mg Tab) 300 mg PO DAILY FIONA Stop: 05/06/21 08:59 Amlodipine Besylate (Amlodipine Besylate 5 Mg Tab) 5 mg PO DAILY [facility]IONA Stop: 05/06/21 08:59 Ascorbic Acid (Ascorbic Acid 500 Mg Tab) 500 mg PO BID FIONA Stop: 05/05/21 20:59 Last Admin: 04/05/21 19:40 Dose: 500 mg Documented by: Ezetimibe (Ezetimibe 10 Mg Tablet) 10 mg PO DAILY FIONA Stop: 05/06/21 08:59 Fluticasone Propionate (Fluticasone Propionate Na Spr 16 Gm Btl) 1 sprays NA DAILY [facility]IONA Stop: 05/06/21 08:59 Fluticasone/Vilanterol (Fluticasone/Vilanterol 200/25mcg 14 Puffs/Inhaler) 1 puffs INH DAILY [facility]IONA Stop: 05/06/21 08:59 Piperacillin Sod/Tazobactam (Sod 4.5 gm/ Dextrose) 120 mls @ 30 mls/hr IV Q8H FIONA; Protocol Stop: 04/13/21 00:00 Last Infusion: 04/06/21 03:30 Dose: Infused Documented by: Vancomycin HCl 1,000 mg/ (Sodium Chloride) 270 mls @ 200 mls/hr IV Q12H [facility]A Stop: 04/13/21 05:59 Last Admin: 04/06/21 05:49 Dose: 200 mls/hr Documented by: Loratadine (Loratadine 10 Mg Tab) 10 mg PO DAILY [facility]IONA Stop: 05/06/21 08:59 Metoprolol Succinate (Metoprolol Succ 50mg Ext Rel Tab) 50 mg PO DAILY FIONA Stop: 05/06/21 08:59 Miscellaneous (Order Awaiting Action: Posaconazole 100 Mg Tablet,Delayed Release (Dr/Ec)) 1 ea N/A QS [facility] Stop: 05/06/21 00:00 Last Admin: 04/05/21 23:24 Dose: Not Given Documented by: Miscellaneous (Order Awaiting Action: Venetoclax 10 Mg Tablet) 1 ea N/A QS [facility] Stop: 05/06/21 00:00 Last Admin: 04/05/21 23:24 Dose: Not Given Documented by: Miscellaneous Information (Vancomycin Consult Active) 0 ea N/A UD PRN PRN Reason: Consult Stop: 05/05/21 17:21 Miscellaneous Information (Piperacill/Tazobac Consult Active) 1 ea N/A UD PRN PRN Reason: Consult Stop: 05/05/21 17:21 Nitroglycerin (Nitroglycerin Sl 0.4 Mg/Tab Tab) 0.4 mg SL UD PRN PRN Reason: Chest Pain Stop: 05/05/21 18:05 Rosuvastatin Calcium (Rosuvastatin Calcium 10 Mg Tab) 10 mg PO DAILY [facility] Stop: 05/06/21 08:59 Tamsulosin HCl (Tamsulosin Hcl 0.4 Mg Cap) 0.4 mg PO DAILYBD [facility] Stop: 05/06/21 15:29
[2021-04-06] MEDS: [UNRECOGNIZED DRUG - REMARK] SCH ×3 (08:28→23:53)
--- NOTE | 2021-04-06 08:46 | Cardiology Consultation ---
Date of Consultation April 06, 2021 Assessment & Plan (1) Elevated troponin I level: (2) Bradycardia: (3) Leukopenia due to antineoplastic chemotherapy: (4) Cellulitis of chest wall: (5) Thrombocytopenia: (6) Obstructive sleep apnea: (7) AML (acute myeloid leukemia): (8) CAD (coronary artery disease): (9) Status post coronary artery stent placement: Given his lack of ischemic symptoms and no new wall motion abnormalities on echocardiogram I do not believe his minimal troponin elevation represents active ischemia and no further cardiac testing intervention is necessary at this time. His port site is very red and erythematous and given his neutropenic state I will ask our infectious disease colleagues to evaluate him for further treatment. Transthoracic echocardiogram did not show any valvular abnormality suggestive of endocarditis. Continue outpatient medical regimen including aspirin, amlodipine, Zetia, metoprolol and rosuvastatin. I do not believe his heart rate in the 30s was a bradycardia event likely miscounted ectopy, would continue on telemetry overnight for completeness sake. History of Present Illness Reason for Consultation: Elevated troponin level Requesting Physician: [facility] hospitalist group Attending Physician: Charly Prieto MD History of Present Illness It was my pleasure to see Mr. Conte in cardiac consultation today April 06, 2021. He is a very pleasant yet medically complex 70-year-old gentleman who routinely follows with Dr. Barnes of our cardiology team. He presented to [facility] on 03[facility] with reports of bradycardia during platelet transfusion. He is also been having a worsening chest wall cellulitis since a port was placed for chemotherapy several days ago. Clinically states he feels tired but otherwise rather well. The site of the port is uncomfortable for him but he denies any substernal chest pain, shortness of breath, palpitations, lightheadedness, dizziness or syncope. He states that when it was reported that his heart rate was in the 30s he was feeling well and he has had no significant bradycardia arrhythmias on telemetry since admission. Allergies Allergy/AdvReac Type Severity Reaction Status Date / Time No Known Allergies Allergy Verified 04/05/21 13:23 Home Medications Medication Instructions Recorded Confirmed Type metoprolol succinate 50 mg 50 mg PO DAILY 30 Days #15 tab 08/17/17 04/05/21 History tablet,extended release 24 hr (Toprol XL) acyclovir 400 mg tablet 400 mg PO TID 03/31/21 04/05/21 History allopurinol 300 mg tablet 300 mg PO DAILY 03/31/21 04/05/21 History amlodipine 5 mg tablet 5 mg PO DAILY 03/31/21 04/05/21 History ascorbic acid (vitamin C) 500 mg 500 mg PO BID 03/31/21 04/05/21 History tablet doxycycline hyclate 100 mg capsule 100 mg PO BID 03/31/21 04/05/21 History ezetimibe 10 mg tablet 10 mg PO DAILY 03/31/21 04/05/21 History fluticasone 250 mcg-salmeterol 50 1 inh INHALATION BID 03/31/21 04/05/21 History mcg/dose blistr powdr for inhalation fluticasone prop.50 mcg 1 ea INTRANASAL DAILY 03/31/21 04/05/21 History spray,suspen-sod.chloride 0.9% nasal spray kit levofloxacin 500 mg tablet 500 mg PO DAILY 03/31/21 04/05/21 History loratadine 10 mg tablet 10 mg PO DAILY 03/31/21 04/05/21 History ondansetron 4 mg disintegrating 4 mg PO Q8H PRN 03/31/21 04/05/21 History tablet posaconazole 100 mg tablet,delayed 300 mg PO DAILY 03/31/21 04/05/21 History release rosuvastatin 10 mg tablet 10 mg PO DAILY 03/31/21 04/05/21 History tamsulosin 0.4 mg capsule 0.4 mg PO DAILY 03/31/21 04/05/21 History venetoclax 10 mg tablet 70 mg PO DAILY 03/31/21 04/05/21 History amoxicillin 500 mg-potassium 1 tab PO BID 04/05/21 04/05/21 History clavulanate 125 mg tablet (Augmentin) Patient History Medical History AML (acute myeloid leukemia) Asthma CAD (coronary artery disease) Chronic diastolic CHF (congestive heart failure) Dyslipidemia Gastric ulcer gastric ulcers due to naproxsyn bleeding Hypertension Obstructive sleep apnea Pulmonary HTN Spinal stenosis Surgical History Hx of appendectomy Hx of hernia repair Stented coronary artery Family History Mother Hx of diabetes mellitus Social History Smoking Status: Never smoker Hx Alcohol Use: No Hx Substance Use: No Preferred Language: Palestinian Communication Ability: Effective Visual Impairment: No Limitations Hearing Ability: Normal Spanish Moss Picker Required: No Beliefs That Will Affect Care: None marital status: Single Current Living Situation: Alone current occupational status: retired Feels Safe at Home: Yes Safety Concerns: Feels Safe At This Time Childhood Exposure to Second-Hand Smoke: No (secondhand smoke while in the [employer]) caffeine: Yes (coffee one a day) Dental Care, Regularly: Yes Physical Activity Frequency: 1-2 Times per Week Seatbelt Use: always Sunscreen Use: No Assistive Devices: Apnea Monitor Review of Systems 2 Review of Systems: All systems reviewed & are unremarkable except as noted in HPI & below Physical Exam Physical Exam: General: Awake, alert and oriented x 3. No acute distress. HEENT: Normocephalic, atraumatic. Pupils equal, round and reactive to light and accommodation. Extraocular muscles are intact. Anicteric sclera. Moist mucous membranes. Neck: No JVD. No bruit. Cardiovascular: Regular. Positive S-4. Normal S-1 and S-2. No S-3. No murmurs or rubs. Pulmonary: Clear to auscultation B/L. No rales, rhonchi or wheezing Abdomen: Bowel sounds x 4, soft. No rebound, guarding or tenderness. No organomegaly. Extremities: No clubbing, cyanosis or edema. +2 pedal pulses bilaterally. Skin: Warm and dry. Results & Data ([facility]) Vital Signs (Past 12 Hours) Vital Signs Temp Pulse Resp BP Pulse Ox 04/06/21 04:00 37 C 71 19 132/85 97 04/06/21 00:00 37.1 C 76 18 131/66 96 Diagnostic Findings Cardiac Cath August 2017 revealed: Coronary anatomy was noted to be densely calcified on fluoroscopic assessment The left main trunk was widely patent. Two ramus branches were noted 1 of which had a 50% proximal stenosis. The second ramus branch had a 60-70% mid stenosis. The circumflex was widely patent. The LAD was diffusely diseased in its proximal mid segment with 50% proximal narrowing. The LAD gave off 2 small to medium diagonal branches without significant stenosis. The right coronary artery was a dominant vessel with an ulcerated 80-90% stenosis. The distal RCA territory also was noted to have a 60 to 70% stenosis. The left end-diastolic pressure was noted to be relatively normal at 10 millimeters of Hg. The patient underwent successful PCI of the proximal RCA with a single 4.5 x 18 millimeter bare metal stent. Summary of transthoracic echocardiogram performed 05/20/2019: Moderate biatrial enlargement - ventricles are normal in size. The left ventricular systolic function is normal. Calculated LV ejection Fraction = 63% (bi-plane method of discs). The right ventricular systolic function is normal. The aortic valve is mildly calcified. Aortic stenosis is absent. Mild aortic valve regurgitation is present. The mitral valve anatomy is normal. Trace mitral regurgitation is present. The tricuspid valve anatomy is normal. Mild tricuspid regurgitation is present. The estimated pulmonary artery systolic pressure is normal at 31mm Hg. Estimated mean right atrial pressure is normal at 3 mmHg.
[2021-04-06] MEDS: ACYCLOVIR 400 MG TAB PO SCH ×3 (09:12→20:30)
[2021-04-06] MEDS: PIPERACILLIN/TAZOBACTAM 4.5 GM in DEXTROSE 5% 100 ML IV SCH ×3 (09:12→23:51)
[2021-04-06] MEDS: EZETIMIBE 10 MG TABLET PO SCH (09:13)
[2021-04-06] MEDS: ROSUVASTATIN CALCIUM 10 MG TAB PO SCH (09:13)
[2021-04-06] MEDS: allopurinoL 300 MG TAB PO SCH (09:13)
[2021-04-06] MEDS: FLUTICASONE PROPIONATE NA SPR 16 GM BTL SCH (09:13)
[2021-04-06] MEDS: ASCORBIC ACID 500 MG TAB PO SCH ×2 (09:13→20:30)
[2021-04-06] MEDS: amLODIPine BESYLATE 5 MG TAB PO SCH (09:13)
[2021-04-06] MEDS: METOPROLOL SUCC 50MG EXT REL TAB PO SCH (09:13)
[2021-04-06] MEDS: LORATADINE 10 MG TAB PO SCH (09:13)
[2021-04-06] MEDS: FLUTICASONE/VILANTEROL 200/25MCG 14 PUFFS/INHALER INH SCH (09:14)
[2021-04-06] MEDS: ACETAMINOPHEN 325 MG TAB PO PRN ×3 (09:21→22:18)
[2021-04-06 10:42] LABS: White Blood Count 0.47 K/uL (4.8-10.8)
--- NOTE | 2021-04-06 12:30 | Electrocardiogram Report ---
Test Reason : Blood Pressure : / mmHG Vent. Rate : 079 BPM Atrial Rate : 079 BPM P-R Int : 182 ms QRS Dur : 152 ms QT Int : 446 ms P-R-T Axes : 037 006 021 degrees QTc Int : 511 ms Sinus rhythm with frequent Premature ventricular complexes in a pattern of bigeminy Right bundle branch block Abnormal ECG When compared with ECG of 17-AUG-2017 13:57, Premature ventricular complexes are now Present Right bundle branch block is now Present Confirmed by Ac Harrell ([id number]) on 04/06/2021 12:30:03 PM Referred By: Confirmed By:Ac Harrell
[2021-04-06] MEDS ORDERED: VANCOMYCIN TROUGH ONE (17:30)
[2021-04-06] MEDS: TAMSULOSIN HCL 0.4 MG CAP PO SCH (17:57)
[2021-04-07] MEDS: VANCOMYCIN HCL 1,000 MG in SODIUM CHLORIDE 0.9% 250 ML IV SCH ×2 (06:06→17:50)
[2021-04-07 07:32] LABS: Hematocrit (blood only) 24.8 % (42-52); Hemoglobin 8.5 g/dL (14.0-18.0); Mean Corpuscular Hemoglobin 34.6 pg (25-34); Mean Corpuscular Volume 100.8 fL (80-100); Platelet Count 26 K/uL (130-400); RDW Coefficient of Variation 14.9 % (11.5-14.5); RDW Standard Deviation 54.2 fL (36.4-46.3); Red Blood Count 2.46 M/uL (4.7-6.1); White Blood Count 0.54 K/uL (4.8-10.8)
[2021-04-07 08:02] LABS: Lymphocytes # (auto) 0.54 K/uL (1.2-3.4); Mean Corpuscular Hgb Conc 34.3 g/dL (32-36); Ovalocytes 1+; Platelet Estimate SIGNIFIC DECREASED (Normal); Tear Drop Cells 1+
[2021-04-07] MEDS: PIPERACILLIN/TAZOBACTAM 4.5 GM in DEXTROSE 5% 100 ML IV SCH ×3 (08:35→23:36)
[2021-04-07] MEDS: FLUTICASONE/VILANTEROL 200/25MCG 14 PUFFS/INHALER INH SCH (08:36)
[2021-04-07] MEDS: FLUTICASONE PROPIONATE NA SPR 16 GM BTL SCH (08:36)
[2021-04-07] MEDS: allopurinoL 300 MG TAB PO SCH (08:37)
[2021-04-07] MEDS: METOPROLOL SUCC 50MG EXT REL TAB PO SCH (08:37)
[2021-04-07] MEDS: EZETIMIBE 10 MG TABLET PO SCH (08:37)
[2021-04-07] MEDS: ACYCLOVIR 400 MG TAB PO SCH ×3 (08:37→20:54)
[2021-04-07] MEDS: ROSUVASTATIN CALCIUM 10 MG TAB PO SCH (08:37)
[2021-04-07] MEDS: LORATADINE 10 MG TAB PO SCH (08:37)
[2021-04-07] MEDS: amLODIPine BESYLATE 5 MG TAB PO SCH (08:37)
[2021-04-07] MEDS: ASCORBIC ACID 500 MG TAB PO SCH ×2 (08:37→20:54)
[2021-04-07] MEDS: [UNRECOGNIZED DRUG - REMARK] SCH ×3 (08:38→23:33)
[2021-04-07] MEDS: ACETAMINOPHEN 325 MG TAB PO PRN ×2 (08:40→13:08)
--- NOTE | 2021-04-07 12:08 | Electrocardiogram Report ---
Test Reason : Blood Pressure : / mmHG Vent. Rate : 074 BPM Atrial Rate : 074 BPM P-R Int : 164 ms QRS Dur : 156 ms QT Int : 452 ms P-R-T Axes : 028 -09 -02 degrees QTc Int : 501 ms Sinus rhythm with frequent Premature ventricular complexes Non-specific intra-ventricular conduction block Abnormal ECG When compared with ECG of 05-APR-2021 12:26, (unconfirmed) Non-specific intra-ventricular conduction block has replaced Right bundle branch block Confirmed by Ac Harrell ([id number]) on 04/07/2021 12:07:28 PM Referred By: REFERRED SELF Confirmed By:Ac Harrell
--- NOTE | 2021-04-07 14:36 | Hospitalist Progress Note ---
Date of Service April 07, 2021 Assessment & Plan (1) Elevated troponin: (2) Bradycardia: (3) Cellulitis of chest wall: (4) AML (acute myeloid leukemia): (5) Thrombocytopenia: (6) Leukopenia due to antineoplastic chemotherapy: (7) Hypertension: (8) Dyslipidemia: (9) CAD (coronary artery disease): Plan: Patient is 70-year-old male with a past medical history of residual AML status post 3 cycles of azacitidine who recently presented to [facility] 03/17/2021 for planned induction chemotherapy with cycle of decitabine and venetoclax. During that admission patient was found to have infected Mediport site. Patient was discharged on doxycycline. Was discharged on 03/27/2021. PMH of AML, CAD, prior RCA stent, HTN, dyslipidemia, spinal stenosis, ROBERT, pulmonary HTN, and prior GI bleed. Prior to admission patient was being transfused and he developed bradycardia. (1) Elevated troponin: (2) Bradycardia: (3) Cellulitis of chest wall: (4) AML (acute myeloid leukemia): (5) Thrombocytopenia: (6) Leukopenia due to antineoplastic chemotherapy: (7) Hypertension: (8) Dyslipidemia: (9) CAD (coronary artery disease): Episode of bradycardia during platelet transfusion resolved in ED but pt found to have elevated troponin and EKG changes. Also noted to be markedly leukopenic with chest wall cellulitis. This morning patient is doing okay. Hemodynamically he is doing fine. He is afebrile. Chest erythema looks improved. However, pancytopenia is worsening. Will consult hematology for further input. Infectious disease evaluation is pending. Continue with vancomycin/Zosyn. Cultures remain negative thus far. Appreciate cardiology input. Nonspecific echo without any concerning abnormalities. Continue MODERN DANCER medications occluding aspirin, amlodipine, metoprolol and lovastatin. DVT Prophylaxis: SCDs, no AC due to thrombocytopenia Code Status: Full Code Admission and Anticipated Discharge Date Admission Date: April 06, 2021 Subjective This morning patient reports he is doing okay. Does not have any major concerns. Denies any fever, cough, sore throat, nausea/vomiting, chest pain, abdominal pain, diarrhea or dysuria. Review of Systems Review of Systems: All systems reviewed & are unremarkable except as noted in HPI & below Physical Exam Physical Exam: General: A&Ox3. HENT: NCAT, MMM, EOMI Eyes: PERRLA Neck: Supple, normal range of motion CVS: normal rate and rhythm Resp: Right-sided chest cellulitis noted, site is marked, erythema is improved at the borders Abdomen: Soft, ND/NT, +BS Extremities: No c/c/e Neuro: face symmetric, strength grossly equal, no focal deficit Skin: warm and dry, no rashes/lesions/errythema MSK: normal ROM, no joint swelling/erythema Results & Data Results & Data ([facility]) Vital Signs (Past 12 Hours) Vital Signs Temp Pulse Pulse Pulse Resp BP BP 04/07/21 11:50 37 C 71 18 115/67 04/07/21 08:00 36.6 C 83 18 130/68 04/07/21 07:46 71 04/07/21 03:00 36.7 C 66 18 111/62 Pulse Ox 04/07/21 11:50 91 04/07/21 08:00 94 04/07/21 07:46 04/07/21 03:00 95
[2021-04-07] MEDS: TAMSULOSIN HCL 0.4 MG CAP PO SCH (16:36)
[2021-04-07] MEDS ORDERED: VANCOMYCIN TROUGH ONE (17:30)
[2021-04-07 17:48] LABS: Creatinine Clr Calc Pharmacy 67.5 ml/min; Est GFR (African American) 66.7 ml/min; Est GFR (Non-African American) 57.6 ml/min
--- NOTE | 2021-04-07 19:16 | Pharmacy Report ---
Pharmacy Abx Dose Short Note - Date of Service April 07, 2021 - Assessment & Plan Assessment * 70 year old M receiving VANCOMYCIN + ZOSYN for treatment of chest wall cellulitis in the setting of immunocompromise (AML, chemotherapy, neutropenia). * Today is Day 2 Vanco + Zosyn * Severe neutropenia continues. He remains afebrile. VSS * No growth noted to date in blood cx's or chest wound cx * ID consult to be performed today per chart review Plan Vancomycin * Trough level checked prior to 4th maint dose; trough level = 10.8; estimated AUC/PENNIE with current regimen ~471. Will continue 1000mg IV Q 12 hours * Patient meets criteria for vancomycin AUC dosing nomogram * AUC/PENNIE is the preferred PK/PD target for vancomycin * Target AUC/PENNIE = 400-600 * Trough level of 10-20 mcg/mL is predicted to achieve target AUC/PENNIE * AUC guided dosing is effective and associated with decreased risk of nephrotoxicity Zosyn * eCrCl > 20, BMI > 35, 4.5mg ext-infusion Q 8 hrs appropriate Pharmacy will continue to follow and will adjust dose/frequency as necessary. Thank you.
[2021-04-08] MEDS: VANCOMYCIN HCL 1,000 MG in SODIUM CHLORIDE 0.9% 250 ML IV SCH ×2 (05:51→19:19)
[2021-04-08] MEDS: ACETAMINOPHEN 325 MG TAB PO PRN ×3 (05:51→20:38)
[2021-04-08] MEDS: PIPERACILLIN/TAZOBACTAM 4.5 GM in DEXTROSE 5% 100 ML IV SCH ×2 (07:29→16:48)
[2021-04-08] MEDS: EZETIMIBE 10 MG TABLET PO SCH (08:50)
[2021-04-08] MEDS: FLUTICASONE/VILANTEROL 200/25MCG 14 PUFFS/INHALER INH SCH (08:50)
[2021-04-08] MEDS: METOPROLOL SUCC 50MG EXT REL TAB PO SCH (08:50)
[2021-04-08] MEDS: LORATADINE 10 MG TAB PO SCH (08:51)
[2021-04-08] MEDS: amLODIPine BESYLATE 5 MG TAB PO SCH (08:51)
[2021-04-08] MEDS: ACYCLOVIR 400 MG TAB PO SCH ×3 (08:51→20:38)
[2021-04-08] MEDS: allopurinoL 300 MG TAB PO SCH (08:51)
[2021-04-08] MEDS: FLUTICASONE PROPIONATE NA SPR 16 GM BTL SCH (08:51)
[2021-04-08] MEDS: ROSUVASTATIN CALCIUM 10 MG TAB PO SCH (08:51)
[2021-04-08] MEDS: ASCORBIC ACID 500 MG TAB PO SCH ×2 (08:51→20:38)
[2021-04-08 08:53] LABS: Hematocrit (blood only) 27.5 % (42-52); Hemoglobin 9.4 g/dL (14.0-18.0); Mean Corpuscular Hemoglobin 34.7 pg (25-34); Mean Corpuscular Hgb Conc 34.2 g/dL (32-36); Mean Corpuscular Volume 101.5 fL (80-100); Platelet Count 18 K/uL (130-400); RDW Coefficient of Variation 15.1 % (11.5-14.5); RDW Standard Deviation 55.3 fL (36.4-46.3); Red Blood Count 2.71 M/uL (4.7-6.1); White Blood Count 0.48 K/uL (4.8-10.8)
[2021-04-08] MEDS: [UNRECOGNIZED DRUG - REMARK] SCH ×2 (08:53→16:44)
[2021-04-08 08:54] LABS: Platelet Estimate SIGNIFIC DECREASED (Normal)
--- NOTE | 2021-04-08 12:08 | Electrocardiogram Report ---
Test Reason : Blood Pressure : / mmHG Vent. Rate : 077 BPM Atrial Rate : 077 BPM P-R Int : 172 ms QRS Dur : 152 ms QT Int : 466 ms P-R-T Axes : 050 -01 016 degrees QTc Int : 527 ms Sinus rhythm with Premature supraventricular complexes and with occasional Premature ventricular comp lexes Right bundle branch block Abnormal ECG When compared with ECG of 06-APR-2021 04:36, (unconfirmed) Premature supraventricular complexes are now Present Confirmed by Ac Harrell ([id number]) on 04/08/2021 12:08:46 PM Referred By: REFERRED SELF Confirmed By:Ac Harrell
--- NOTE | 2021-04-08 14:47 | Hospitalist Progress Note ---
Date of Service April 08, 2021 Assessment & Plan (1) Elevated troponin: (2) Bradycardia: (3) Cellulitis of chest wall: (4) AML (acute myeloid leukemia): (5) Thrombocytopenia: (6) Leukopenia due to antineoplastic chemotherapy: (7) Hypertension: (8) Dyslipidemia: (9) CAD (coronary artery disease): Plan: Patient is 70-year-old male with a past medical history of residual AML status post 3 cycles of azacitidine who recently presented to [facility] 03/17/2021 for planned induction chemotherapy with cycle of decitabine and venetoclax. During that admission patient was found to have infected Mediport site. Patient was discharged on doxycycline. Was discharged on 03/27/2021. PMH of AML, CAD, prior RCA stent, HTN, dyslipidemia, spinal stenosis, ROBERT, pulmonary HTN, and prior GI bleed. Prior to admission patient was being transfused and he developed bradycardia. Episode of bradycardia during platelet transfusion resolved in ED but pt found to have elevated troponin and EKG changes. Also noted to be markedly leukopenic with chest wall cellulitis. Today patient reports he is doing okay. Hemodynamically he is doing fine. He is afebrile. Appreciate infectious disease input. Continue vancomycin/Zosyn. Will obtain CT chest to rule out any underlying abscess. Likely port needs to be removed. However, pancytopenia is worsening. Hematology has been consulted; awaiting evaluation. Cultures remain negative thus far. Appreciate cardiology input. Nonspecific echo without any concerning abnormalities. Continue EGG PROCESSOR medications occluding aspirin, amlodipine, metoprolol and lovastatin. DVT Prophylaxis: SCDs, no AC due to thrombocytopenia Code Status: Full Code Admission and Anticipated Discharge Date Admission Date: April 06, 2021 Subjective Patient is doing okay overall. No new complaints. Review of system is negative. Review of Systems Review of Systems: All systems reviewed & are unremarkable except as noted in HPI & below Physical Exam Physical Exam: General: A&Ox3. HENT: NCAT, MMM, EOMI Eyes: PERRLA Neck: Supple, normal range of motion CVS: normal rate and rhythm Resp: Right-sided chest cellulitis noted, site is marked, erythema is improved at the borders - covered with dressing today Abdomen: Soft, ND/NT, +BS Extremities: No c/c/e Neuro: face symmetric, strength grossly equal, no focal deficit Skin: warm and dry, no rashes/lesions/errythema MSK: normal ROM, no joint swelling/erythema Results & Data Results & Data ([facility]) Vital Signs (Past 12 Hours) Vital Signs Temp Pulse Pulse Resp BP BP Pulse Ox 04/08/21 11:37 36.4 C L 78 16 100/52 L 92 04/08/21 07:47 36.5 C 75 16 135/79 94 04/08/21 06:15 75 04/08/21 04:00 36.6 C 76 20 128/70 92
[2021-04-08] MEDS ORDERED: OPTIRAY 320 100ml IV ONE (15:47)
--- NOTE | 2021-04-08 15:58 | CT Scan Report ---
CT chest diagnostic w con CLINICAL HISTORY: infected right chest port swelling and redness around the port. TECHNIQUE: Multidetector row helical CT of the chest was performed. Coronal and sagittal reformations were obtained. Automated dose lowering techniques and/or adjustment according to patient size were u tilized for this exam. Comparison: Comparison is made to chest one view 04/05/2031 FINDINGS: Lungs and pleura: Elevation of left hemidiaphragm is seen with associated atelectasis. Scattered calc ified granulomata are seen. Heart and pericardium: Heart size is normal. No pericardial effusion. Vessels: Moderate atherosclerotic changes in the aorta and coronary arteries. Mediastinum and kathie: Unremarkable. Chest wall and lower neck: Soft tissue stranding and skin thickening is seen about the port catheter. Abdomen: Unremarkable. Bones: Degenerative changes in the thoracic spine. IMPRESSION: Soft tissue stranding and skin thickening about the port catheter compatible with cellulitis. No drai nable fluid collection. ACT 112: Negative or not required by law. Electronically signed by: Spike Murguia M.D. 04/08/2021 3:57 PM
[2021-04-08] MEDS: TAMSULOSIN HCL 0.4 MG CAP PO SCH (16:44)
[2021-04-09] MEDS: PIPERACILLIN/TAZOBACTAM 4.5 GM in DEXTROSE 5% 100 ML IV SCH ×3 (00:37→16:09)
[2021-04-09] MEDS: [UNRECOGNIZED DRUG - REMARK] SCH ×3 (00:46→16:09)
[2021-04-09] MEDS: VANCOMYCIN HCL 1,000 MG in SODIUM CHLORIDE 0.9% 250 ML IV SCH (05:49)
[2021-04-09] MEDS: ACETAMINOPHEN 325 MG TAB PO PRN ×4 (05:50→21:37)
[2021-04-09] MEDS: ACYCLOVIR 400 MG TAB PO SCH ×3 (09:11→21:37)
[2021-04-09] MEDS: allopurinoL 300 MG TAB PO SCH (09:12)
[2021-04-09] MEDS: amLODIPine BESYLATE 5 MG TAB PO SCH (09:12)
[2021-04-09] MEDS: FLUTICASONE PROPIONATE NA SPR 16 GM BTL SCH (09:12)
[2021-04-09] MEDS: ASCORBIC ACID 500 MG TAB PO SCH ×2 (09:12→21:37)
[2021-04-09] MEDS: EZETIMIBE 10 MG TABLET PO SCH (09:12)
[2021-04-09] MEDS: LORATADINE 10 MG TAB PO SCH (09:13)
[2021-04-09] MEDS: FLUTICASONE/VILANTEROL 200/25MCG 14 PUFFS/INHALER INH SCH (09:13)
[2021-04-09] MEDS: METOPROLOL SUCC 50MG EXT REL TAB PO SCH (09:14)
[2021-04-09] MEDS: ROSUVASTATIN CALCIUM 10 MG TAB PO SCH (09:14)
--- NOTE | 2021-04-09 09:50 | Consultation Report ---
HEMATOLOGY CONSULTATION DATE OF CONSULTATION: 04/08/2021 REASON FOR CONSULTATION: Pancytopenia attributable to treated acute myelogenous leukemia. HISTORY OF PRESENT ILLNESS: The patient is a 70-year-old gentleman, not known to [facility], admitted to [facility] on 04/05 with bradycardia during platelet transfusion. I do not really kn ow much about this gentleman and Arron himself was not the best informant when I visited with him at [facility] this morning. I did gather medical records from [facility] and from his original Carlota jj today's consultation. He apparently follows with _[facility] in [place]. He was admitted t [facility] for 10 days of chemotherapy, discharged on 03/27. Three days prior to admission, he report ed platelets were low and received 2 separate platelet transfusions. During the platelet transfusion on the day of admission, he went into bradycardia, heart rate in the 30s and [facility] He had denied associated chest pain, palpitation, shortnes s of breath, cough, dizziness or lightheadedness. According to [facility]ufina's documentation, he is status post induction with decitabine and venetoclax. Peripheral blood counts on the day of consultation, W BC 480, hemoglobin 9.4, platelet count 18,000. The patient feels well, had no specific complaints. I see that cardiology is indeed on board for consultation. PAST MEDICAL HISTORY: Acute myelogenous leukemia, asthma, coronary artery disease, CHF, dyslipidemia , history of gastric ulcer, hypertension, obstructive sleep apnea, pulmonary hypertension, spinal emma nosis. PAST SURGICAL HISTORY: Appendectomy, hernia repair and stent to the coronary artery. MEDICATIONS PRIOR TO ADMISSION: Metoprolol 50 mg p.o. daily, acyclovir 400 mg p.o. t.i.d., allopurin ol 300 mg p.o. daily, amlodipine 5 mg p.o. daily, ascorbic acid 500 mg p.o. b.i.d., doxycycline 100 m g p.o. b.i.d., ezetimibe 10 mg p.o. daily, Flonase 1 inhalation per nostril b.i.d., levofloxacin 500 mg p.o. daily, loratadine 10 mg p.o. daily, Zofran 4 mg p.o. q.8 hours p.r.n., posaconazole 300 mg p .o. daily, rosuvastatin 10 mg p.o. daily, tamsulosin 0.4 mg p.o. daily, venetoclax 70 mg p.o. daily, Augmentin 500/125 one tablet p.o. b.i.d. ALLERGIES: No known drug allergies. FAMILY HISTORY: Mother with diabetes mellitus. SOCIAL HISTORY: The patient is single. He is retired. He lives independently. He is a nonsmoker, nondrinker, nonillicit drug user. REVIEW OF SYSTEMS: CONSTITUTIONAL: Negative for fevers, chills or night sweats. He is not anorexic or losing weight. SKIN: No rashes or lesions. No history of dermatoses. HEENT: Negative for headaches, lightheadedness or dizziness. No acute visual or hearing deficits. No sinus symptoms, sore throat or dysphagia. LYMPHATICS: No history of lymphoproliferative disease. CARDIAC: Positive for bradycardia associated with platelet transfusion. No palpitations or angina. GASTROINTESTINAL: Negative for abdominal pain, nausea, vomiting, diarrhea or constipation, hematoche jeniffer or melena stools. GENITOURINARY: No hematuria, dysuria, or urinary incontinence. PSYCHIATRIC: Negative for anxiety, depression, or psychoses. ENDOCRINE: Negative for diabetes or thyroid disease. NEUROLOGIC: Negative for seizure, stroke or migraine headache. HEMATOLOGIC: Negative for thrombophilia. Positive for pancytopenia attributable to prior chemothera py. PHYSICAL EXAMINATION: GENERAL: A very pleasant 70-year-old, awake, alert and appropriate, in no acute distress. VITAL SIGNS: Temperature 36.6, pulse 69, respiratory rate 20, blood pressure 116/51. SKIN: Warm, dry, noncyanotic without petechia, rash or ecchymosis. HEENT: Head atraumatic, normocephalic. Eyes: PERRLA. EOMI. Sclerae are nonicteric. No conjunctiv al injection. Nares patent without rhinorrhea or discharge. Throat is clear. Tongue is midline. M ucous membranes are moist. NECK: Supple without JVD or thyromegaly. LYMPHATICS: No cervical, supraclavicular, axillary or inguinal palpable nodes. HEART: Regular rate and rhythm. No clicks, rubs, murmurs or gallops. LUNGS: Clear to auscultation bilaterally. ABDOMEN: Soft, nontender, nondistended, without palpable hepatosplenomegaly. EXTREMITIES: Musculoskeletal strength and pulses are equal in all 4 quadrants. No clubbing, cyanosis or edema. NEUROLOGIC: He is grossly intact. LABORATORY DATA: As per HPI. IMAGING: Chest CT: Soft tissue stranding and skin thickening about the port catheter compatible with cellulitis. IMPRESSION: 1. Pancytopenia attributable to venetoclax and decitabine chemotherapy. 2. Elevated troponin. 3. Bradycardia. [facility]. [facility] PLAN: In summary, again, I am not familiar with Arron Conte. He follows with [facility] and apparently received induction chemotherapy through the [facility]. I did chintan e time to review both venetoclax and decitabine, neither of which are known to cause an overt bradyca rdia; however, decitabine does mention some cardiac issues, particularly atrial fibrillation, myocard ial infarction, CHF and cardiorespiratory arrest as serious adverse reactions. Cardiology consult is certainly appropriate and trust they will make appropriate recommendations moving forward. His coun ts at the present time do not need addressing through transfusion. This gentleman with history of AM L; would avoid granulocyte-colony stimulating growth factor unless he develops a more severe infectio n, excluding a simple port site cellulitis. I have nothing further to add, certainly recommend that he establish post-hospitalization followup with his managing form carpenter. If there are further ques tions or concerns, please feel free to contact me at any time. Job ID: [id number]
[2021-04-09 09:51] LABS: BUN Creatinine Ratio 9.3 (10-20); Calcium 8.5 mg/dl (8.5-10.1); Creatinine Clr Calc Pharmacy 72.7 ml/min; Potassium 3.7 mmol/L (3.5-5.1)
[2021-04-09 09:53] LABS: Hematocrit (blood only) 25.5 % (42-52); Hemoglobin 8.7 g/dL (14.0-18.0); Mean Corpuscular Hemoglobin 34.5 pg (25-34); Mean Corpuscular Hgb Conc 34.1 g/dL (32-36); Mean Corpuscular Volume 101.2 fL (80-100); Nucleated RBC # (auto) 0.04 K/uL (0-0); Nucleated RBC % (auto) 7.9 %; Platelet Count 16 K/uL (130-400); RDW Coefficient of Variation 15.1 % (11.5-14.5); RDW Standard Deviation 55.3 fL (36.4-46.3); Red Blood Count 2.52 M/uL (4.7-6.1); White Blood Count 0.44 K/uL (4.8-10.8)
[2021-04-09] MEDS ORDERED: PNEUMOCOCCAL POLYSACCHARIDES 25 MCG/0.5 ML VIAL/SYR IM ONE (12:38)
[2021-04-09] MEDS ORDERED: INFLUENZA VACCINE HIGH DOSE PF 65+ 0.7 ML SYR IM ONE (12:38)
[2021-04-09] MEDS: TAMSULOSIN HCL 0.4 MG CAP PO SCH (16:09)
--- NOTE | 2021-04-09 19:53 | Hospitalist Progress Note ---
Date of Service April 09, 2021 Assessment & Plan (1) Cellulitis of chest wall: Plan: Improvement on 48 + hrs of IV Vanc and Zosyn. Transition to Amox/Doxy for an additional 5 days and follow-up with PCP. (2) Bradycardia: Plan: Normal sinus rhythm without bradycardia after 48+hours on telemetry. Stop monitoring now, possible misread ectopy per cardiology. No further workup needed at this time. (3) Elevated troponin: Plan: Nonischemic in etiology per cardiology. No further workup at thie time. Echo revealed no new wall motion abnormalities. (4) AML (acute myeloid leukemia): Plan: On chemo, last given 04/06, currently wtih pancytopenia and immunosuppression 2/2 chemotherapy. He is not clinically ill and needs to be discharged sariah to reduce the risk of hospital acquired infections and continue to prepare for his upcoming stem cell transplantation in one month. (5) Pancytopenia due to antineoplastic chemotherapy: Plan: as above. Supportive care, Proophylaxis medications per home regimen, noted antifungal not on formulary. Transfusions PRN. (6) DVT prophylaxis: Plan: SCDs/ambulation. No chemoprophylaxis 2/2 thrombocytopenia Full Code Dispo-to home in am . Nery Tim DO [facility] Hospitalist Admission and Anticipated Discharge Date Admission Date: April 06, 2021 Subjective 70-year-old man with a history of AML on chemotherapy currently in preparation for stem cell transplant in 1 month presented with a possible port infection. He presented from the infusion center with transient bradycardia. Recently admitted at [place] for 10 days of chemotherapy and discharged on 03/27. During a platelet transfusion on 04/05 his heart rate dropped into the 30s. He was asymptomatic and heart rate spontaneously recovered. He was started on vancomycin and Zosyn to cover a chest wall cellulitis in setting of immunosuppression with recent chemotherapy. Cardiology was consulted and performed an echocardiogram revealing no new wall motion abnormalities. He also had a minimal troponin elevation which was not felt to represent active ischemia and no further cardiac testing was felt to be needed at this time. No further work-up for his bradycardia was needed and since admission he has remained in normal sinus rhythm on telemetry. He is currently feeling well and the erythema around his chest wall wound is healing. He denies any chest pain, shortness of breath, fevers, chills or other symptoms at this time. Review of Systems Review of Systems: At least ten systems were reviewed and negative except as indicated in HPI above. Physical Exam Physical Exam: CONSTITUTIONAL: WNWD, vitals as above, generally well- appearing EYES: normal conjunctivae, no scleral icterus ENT: external ear and nose normal, MMM NECK: trachea midline RESPIRATORY: clear to auscultation bilaterally, no crackles, rales or wheezes, normal respiratory effort CARDIOVASCULAR: regular rate and rhythm, S1 and 2 heard without murmurs, gallops or rubs, no JVD, no peripheral edema CHEST: right anterior chest wall wtih a scab where port was, surrounded by 1inch halo of light pink skin, scab well healed with no drainage. Covered with Aquacel Ag and Optifoam. GASTROINTESTINAL: normal bowel sounds, soft, nontender.,ND MUSCULOSKELETAL: strength 5/5 throughout, ambulates independently SKIN: warm and dry NEUROLOGIC: CN 2-12 grossly intact, normal cognition, normal speech, no tremor PSYCHIATRIC: alert cooperative and oriented to person, place and time. Euthymic mood, makes good eye contact, language grossly intact, recent and remote memory grossly intact. Results & Data Results & Data ([facility]) Vital Signs (Past 12 Hours) Vital Signs Temp Pulse Pulse Resp BP Pulse Ox 04/09/21 18:57 36.8 C 80 18 135/65 94 04/09/21 16:19 75 04/09/21 15:06 36.6 C 75 14 122/74 96 04/09/21 11:04 70 04/09/21 10:45 36.6 C 78 22 117/65 93 04/09/21 07:51 36.9 C 68 18 136/83 93 Laboratory Results Short CBC 04/09/21 Range/Units 09:05 WBC 0.44 L* (4.8-10.8) K/uL Hgb 8.7 L (14.0-18.0) g/dL Hct 25.5 L (42-52) % Plt Count 16 L* (130-400) K/uL BMP 04/09/21 09:05 Sodium 143 Potassium 3.7 Chloride 110 H Carbon Dioxide 24 BUN 11 Creatinine 1.16 Glucose 219 H Calcium 8.5 Medications Administered Current Inpatient Medications Acetaminophen (Acetaminophen 325 Mg Tab) 650 mg PO Q4H PRN PRN Reason: Pain or Fever Stop: 05/05/21 18:05 Last Admin: 04/09/21 16:08 Dose: 650 mg Documented by: Acyclovir (Acyclovir 400 Mg Tab) 400 mg PO TID FIONA Stop: 05/05/21 20:59 Last Admin: 04/09/21 16:08 Dose: 400 mg Documented by: Allopurinol (Allopurinol 300 Mg Tab) 300 mg PO DAILY FIONA Stop: 05/06/21 08:59 Last Admin: 04/09/21 09:12 Dose: 300 mg Documented by: Amlodipine Besylate (Amlodipine Besylate 5 Mg Tab) 5 mg PO DAILY FIONA Stop: 05/06/21 08:59 Last Admin: 04/09/21 09:12 Dose: 5 mg Documented by: Ascorbic Acid (Ascorbic Acid 500 Mg Tab) 500 mg PO BID FIONA Stop: 05/05/21 20:59 Last Admin: 04/09/21 09:12 Dose: 500 mg Documented by: Ezetimibe (Ezetimibe 10 Mg Tablet) 10 mg PO DAILY FIONA Stop: 05/06/21 08:59 Last Admin: 04/09/21 09:12 Dose: 10 mg Documented by: Fluticasone Propionate (Fluticasone Propionate Na Spr 16 Gm Btl) 1 sprays NA DAILY FIONA Stop: 05/06/21 08:59 Last Admin: 04/09/21 09:12 Dose: 1 sprays Documented by: Fluticasone/Vilanterol (Fluticasone/Vilanterol 200/25mcg 14 Puffs/Inhaler) 1 puffs INH DAILY FIONA Stop: 05/06/21 08:59 Last Admin: 04/09/21 09:13 Dose: 1 puffs Documented by: Loratadine (Loratadine 10 Mg Tab) 10 mg PO DAILY FIONA Stop: 05/06/21 08:59 Last Admin: 04/09/21 09:13 Dose: 10 mg Documented by: Metoprolol Succinate (Metoprolol Succ 50mg Ext Rel Tab) 50 mg PO DAILY FIONA Stop: 05/06/21 08:59 Last Admin: 04/09/21 09:14 Dose: 50 mg Documented by: Miscellaneous (Order Awaiting Action: Posaconazole 100 Mg Tablet,Delayed Release (Dr/Ec)) 1 ea N/A QS [facility]IONA Stop: 05/06/21 00:00 Last Admin: 04/09/21 16:09 Dose: Not Given Documented by: Miscellaneous (Order Awaiting Action: Venetoclax 10 Mg Tablet) 1 ea N/A QS [facility] Stop: 05/06/21 00:00 Last Admin: 04/06/21 08:29 Dose: Not Given Documented by: Nitroglycerin (Nitroglycerin Sl 0.4 Mg/Tab Tab) 0.4 mg SL UD PRN PRN Reason: Chest Pain Stop: 05/05/21 18:05 Rosuvastatin Calcium (Rosuvastatin Calcium 10 Mg Tab) 10 mg PO DAILY [facility] Stop: 05/06/21 08:59 Last Admin: 04/09/21 09:14 Dose: 10 mg Documented by: Tamsulosin HCl (Tamsulosin Hcl 0.4 Mg Cap) 0.4 mg PO DAILYBD [facility] Stop: 05/06/21 15:29 Last Admin: 04/09/21 16:09 Dose: 0.4 mg Documented by:
[2021-04-09] MEDS: DOXYCYCLINE HYCLATE 100 MG CAP PO SCH (21:37)
[2021-04-10] MEDS: [UNRECOGNIZED DRUG - REMARK] SCH ×2 (01:05→12:09)
[2021-04-10] MEDS ORDERED: VANCOMYCIN TROUGH ONE (05:30)
[2021-04-10 07:08] LABS: BUN Creatinine Ratio 11.5 (10-20); Calcium 8.4 mg/dl (8.5-10.1); Creatinine Clr Calc Pharmacy 92.7 ml/min; Est GFR (African American) 90.7 ml/min; Est GFR (Non-African American) 78.2 ml/min; Potassium 3.9 mmol/L (3.5-5.1)
[2021-04-10 07:30] LABS: Hematocrit (blood only) 25.2 % (42-52); Hemoglobin 8.5 g/dL (14.0-18.0); Mean Corpuscular Hemoglobin 34.3 pg (25-34); Mean Corpuscular Hgb Conc 33.7 g/dL (32-36); Mean Corpuscular Volume 101.6 fL (80-100); Nucleated RBC # (auto) 0.02 K/uL (0-0); Nucleated RBC % (auto) 3.8 %; Platelet Count 20 K/uL (130-400); Platelet Estimate SIGNIFIC DECREASED (Normal); RDW Coefficient of Variation 15.3 % (11.5-14.5); RDW Standard Deviation 55.8 fL (36.4-46.3); Red Blood Count 2.48 M/uL (4.7-6.1); White Blood Count 0.46 K/uL (4.8-10.8)
[2021-04-10] MEDS ORDERED: AMOXICILLIN/CLAVULANATE 875 MG TAB PO SCH (08:00)
[2021-04-10] MEDS: FLUTICASONE/VILANTEROL 200/25MCG 14 PUFFS/INHALER INH SCH (08:33)
[2021-04-10] MEDS: DOXYCYCLINE HYCLATE 100 MG CAP PO SCH (08:33)
[2021-04-10] MEDS: FLUTICASONE PROPIONATE NA SPR 16 GM BTL SCH (08:33)
[2021-04-10] MEDS: ACYCLOVIR 400 MG TAB PO SCH ×2 (08:34→14:21)
[2021-04-10] MEDS: ASCORBIC ACID 500 MG TAB PO SCH (08:34)
[2021-04-10] MEDS: METOPROLOL SUCC 50MG EXT REL TAB PO SCH (08:35)
[2021-04-10] MEDS: amLODIPine BESYLATE 5 MG TAB PO SCH (08:36)
[2021-04-10] MEDS: ROSUVASTATIN CALCIUM 10 MG TAB PO SCH (08:36)
[2021-04-10] MEDS: EZETIMIBE 10 MG TABLET PO SCH (08:36)
[2021-04-10] MEDS: allopurinoL 300 MG TAB PO SCH (08:36)
[2021-04-10] MEDS: ACETAMINOPHEN 325 MG TAB PO PRN (08:37)
[2021-04-10] MEDS: LORATADINE 10 MG TAB PO SCH (08:37)
[2021-04-10] MEDS: VANCOMYCIN HCL 1,000 MG in SODIUM CHLORIDE 0.9% 250 ML IV SCH (10:52)
--- NOTE | 2021-04-10 13:39 | Discharge Summary ---
Date of Service April 10, 2021 Admission HPI Per Admitting Provider This is a 70 y/o male with a PMH of AML, CAD, prior RCA stent, HTN, dyslipidemia, spinal stenosis, ROBERT, pulmonary HTN, and prior GI bleed who presented to the ED from the infusion center with transient bradycardia. The pt has a hx of AML for which he follows with Dr. Chowdhury in the [facility]. He was recently admitted at [place] for ten days of chemotherapy - discharged on 03/27. Labs being followed closely post-chemo. On Monday (3 days ago), he reports that his platelets were low so he received "a small bag" of platelets, but today he received "a larger bag" of platelets. During the platelet transfusion this morning, he was noted to be bradycardic in the 30s so he was referred to the ED for additional evaluation. He reports that he does not recall his HR ever dropping before, and he denies associated symptoms with this episode. His HR is now back in the 70s. Specifically, he denies chest pain, palpitations, SOB, cough, dizziness, or syncope. He also recently had a port placed at [place] but he developed some erythema over it within a few days. Initially it was thought due to a local reaction to the adhesive from the dressing but it has persisted so he was started on Augmentin for possible cellulitis on Monday (2 days ago). He denies fevers, chills, sweats, drainage from the area. He reports that they did not access the port since this redness developed. He has not noted significant improvement on the Augmentin and in fact, thinks it might be slightly worse. Pt was vaccinated for COVID - Cobra Stylet x 2 doses (08/31 and 09/21/20). Admission Exam Per Admitting Provider Constitutional: well developed and well nourished; no acute distress Eyes: + anicteric sclerae Neck: trachea midline Respiratory: no respiratory distress and no labored breathing Auscultation: lungs clear to auscultation bilaterally; no rales, no rhonchi and no wheezes Cardiovascular: Rate/Rhythm: regular rate (with frequent ectopy) Heart Sounds: no gallop, no murmur and no cardiac rub Vessels: dorsalis pedis pulses present and radial pulses present Extremities: + edema (1+ pitting bilateral LE) Gastrointestinal (Abdomen): Inspection/Auscultation: normal bowel sounds; abdomen not distended Percussion/Palpation: abdomen soft; abdomen nontender Musculoskeletal: Head/Neck/Chest: normocephalic, head atraumatic and neck supple Skin: 4 x 4 cm area of erythema overlying right chest wall port site with associated mild warmth, central scabbed area, tenderness superior aspect of port Neurologic: moves all extremities; no focal motor deficits Psychiatric: A+Ox3, euthymic affect Principal Diagnosis cellulitis of chest wall bradycardia elevated troponin AML pancytopenia due to antineoplastic chemotherapy Discharge Exam CONSTITUTIONAL: WNWD, vitals stable, generally well-appearing EYES: normal conjunctivae, no scleral icterus ENT: external ear and nose normal, MMM NECK: trachea midline RESPIRATORY: clear to auscultation bilaterally, no crackles, rales or wheezes, normal respiratory effort CARDIOVASCULAR: regular rate and rhythm, S1 and 2 heard without murmurs, gallops or rubs, no JVD, no peripheral edema CHEST: right anterior chest wall, scab well healed with no drainage. Covered with Aquacel Ag and Optifoam. GASTROINTESTINAL: normal bowel sounds, soft, nontender.,ND MUSCULOSKELETAL: strength 5/5 throughout, ambulates independently SKIN: warm and dry NEUROLOGIC: CN 2-12 grossly intact, normal cognition, normal speech, no tremor PSYCHIATRIC: alert cooperative and oriented to person, place and time. Euthymic mood, makes good eye contact, language grossly intact, recent and remote memory grossly intact. Discharge Data Allergies Allergy/AdvReac Type Severity Reaction Status Date / Time No Known Allergies Allergy Verified 04/05/21 13:23 Consultations 04/05/21 14:27 ED Decision to Admit Stat 04/05/21 17:21 Consult Health Information Management Routine 04/05/21 18:06 Consult Cardiology Routine 04/06/21 10:31 Consult Infectious Diseases Routine 04/07/21 14:33 Consult Hematology Routine Ordered Studies Laboratory Results WBC 0.46 K/uL (4.8-10.8) L* 04/10/21 06:33 RBC 2.48 M/uL (4.7-6.1) L 04/10/21 06:33 Hgb 8.5 g/dL (14.0-18.0) L 04/10/21 06:33 Hct 25.2 % (42-52) L 04/10/21 06:33 MCV 101.6 fL (80-100) H 04/10/21 06:33 MCH 34.3 pg (25-34) H 04/10/21 06:33 MCHC 33.7 g/dL (32-36) 04/10/21 06:33 RDW Std Deviation 55.8 fL (36.4-46.3) H 04/10/21 06:33 RDW Coeff of Joao 15.3 % (11.5-14.5) H 04/10/21 06:33 Plt Count 20 K/uL (130-400) L* 04/10/21 06:33 MPV 9.6 fL (7.4-10.4) 04/05/21 12:48 Immature Gran % (Auto) Cancelled 04/10/21 06:33 Neut % (Auto) Cancelled 04/10/21 06:33 Lymph % (Auto) Cancelled 04/10/21 06:33 [place] % (Auto) Cancelled 04/10/21 06:33 Eos % (Auto) Cancelled 04/10/21 06:33 Baso % (Auto) Cancelled 04/10/21 06:33 Neut # (Auto) Cancelled 04/10/21 06:33 Lymph # (Auto) Cancelled 04/10/21 06:33 [place] # (Auto) Cancelled 04/10/21 06:33 Eos # (Auto) Cancelled 04/10/21 06:33 Baso # (Auto) Cancelled 04/10/21 06:33 Immature Gran # (Auto) Cancelled 04/10/21 06:33 Absolute Nucleated RBC 0.02 K/uL (0-0) H 04/10/21 06:33 Nucleated RBC % (auto) 3.8 % 04/10/21 06:33 Neutrophils % (Manual) Cancelled 04/10/21 06:33 Band Neutrophils % Cancelled 04/10/21 06:33 Lymphocytes % (Manual) Cancelled 04/10/21 06:33 Prolymphocyte % Cancelled 04/10/21 06:33 Reactive Lymphs % (Man) Cancelled 04/10/21 06:33 Monocytes % (Manual) Cancelled 04/10/21 06:33 Eosinophils % (Manual) Cancelled 04/10/21 06:33 Basophils % (Manual) Cancelled 04/10/21 06:33 Metamyelocytes % (Man) Cancelled 04/10/21 06:33 Myelocytes % (Man) Cancelled 04/10/21 06:33 Promyelocytes % (Man) Cancelled 04/10/21 06:33 Blast Cells % (Manual) Cancelled 04/10/21 06:33 Plasma Cell % (Manual) Cancelled 04/10/21 06:33 Other Cells % Cancelled 04/10/21 06:33 Nucleated RBC % Cancelled 04/10/21 06:33 Neutrophils # (Manual) Cancelled 04/10/21 06:33 Band Neutrophils # Cancelled 04/10/21 06:33 Total Absolute Neuts Cancelled 04/10/21 06:33 Lymphocytes # (Manual) Cancelled 04/10/21 06:33 Prolymphocyte # Cancelled 04/10/21 06:33 Reactive Lymphs # Cancelled 04/10/21 06:33 Total Abs Lymphocytes Cancelled 04/10/21 06:33 Monocytes # (Manual) Cancelled 04/10/21 06:33 Eosinophils # (Manual) Cancelled 04/10/21 06:33 Basophils # (Manual) Cancelled 04/10/21 06:33 Metamyelocytes # (Man) Cancelled 04/10/21 06:33 Myelocytes # (Manual) Cancelled 04/10/21 06:33 Promyelocytes # (Man) Cancelled 04/10/21 06:33 Blast Cells # (Man) Cancelled 04/10/21 06:33 Plasma Cell # (Manual) Cancelled 04/10/21 06:33 Other Cells # Cancelled 04/10/21 06:33 Nucleated RBCs # (Man) Cancelled 04/10/21 06:33 Hypersegmented Neuts Cancelled 04/10/21 06:33 Hyposegmented Neuts Cancelled 04/10/21 06:33 Hypogranular Neuts Cancelled 04/10/21 06:33 Large Granular Lymphs Cancelled 04/10/21 06:33 # Lrg Granular Lymphs Cancelled 04/10/21 06:33 Hairy Cells Cancelled 04/10/21 06:33 Smudge Cells Cancelled 04/10/21 06:33 Toxic Granulation Cancelled 04/10/21 06:33 Toxic Vacuolation Cancelled 04/10/21 06:33 Dohle Bodies Cancelled 04/10/21 06:33 Jenn Rods Cancelled 04/10/21 06:33 Platelet Estimate SIGNIFIC DECREASED (Normal) 04/10/21 06:33 Hypogranular Platelets Cancelled 04/10/21 06:33 Clumped Platelets Cancelled 04/10/21 06:33 Giant Platelets Cancelled 04/10/21 06:33 Platelet Satelliting Cancelled 04/10/21 06:33 RBC Morphology Cancelled 04/10/21 06:33 Polychromasia Cancelled 04/10/21 06:33 Hypochromasia Cancelled 04/10/21 06:33 Poikilocytosis Cancelled 04/10/21 06:33 Basophilic Stippling Cancelled 04/10/21 06:33 Anisocytosis Cancelled 04/10/21 06:33 Microcytosis Cancelled 04/10/21 06:33 Macrocytosis Cancelled 04/10/21 06:33 Spherocytes Cancelled 04/10/21 06:33 Pappenheimer Bodies Cancelled 04/10/21 06:33 Sickle Cells Cancelled 04/10/21 06:33 Target Cells Cancelled 04/10/21 06:33 Tear Drop Cells Cancelled 04/10/21 06:33 Ovalocytes Cancelled 04/10/21 06:33 Stomatocytes Cancelled 04/10/21 06:33 Go[place]-Melstone Bodies Cancelled 04/10/21 06:33 Echinocytes Cancelled 04/10/21 06:33 Acanthocytes (Spur) Cancelled 04/10/21 06:33 Rouleaux Cancelled 04/10/21 06:33 RBC Agglutinates Cancelled 04/10/21 06:33 Schistocytes Cancelled 04/10/21 06:33 RBC Morph Comment Cancelled 04/10/21 06:33 Sezary Cell Cancelled 04/10/21 06:33 PT 10.5 Seconds (9.0-12.0) 04/05/21 12:48 INR 1.0 (0.9-1.1) 04/05/21 12:48 APTT 27.1 Seconds (21.0-31.0) 04/05/21 12:48 PTT Ratio 1.0 04/05/21 12:48 Sodium 141 mmol/L (136-145) 04/10/21 06:33 Potassium 3.9 mmol/L (3.5-5.1) 04/10/21 06:33 Chloride 111 mmol/L (98-107) H 04/10/21 06:33 Carbon Dioxide 29 mmol/L (21-32) 04/10/21 06:33 Anion Gap 1.0 (3-11) L 04/10/21 06:33 BUN 11 mg/dl (7-18) 04/10/21 06:33 Creatinine 0.97 mg/dl (0.6-1.4) 04/10/21 06:33 Est Cr Clr Drug Dosing 92.7 ml/min 04/10/21 06:33 Est GFR ( Amer) 90.7 ml/min 04/10/21 06:33 Est GFR (Non-Af Amer) 78.2 ml/min 04/10/21 06:33 BUN/Creatinine Ratio 11.5 (10-20) 04/10/21 06:33 Glucose 117 mg/dl (70-99) H 04/10/21 06:33 Calcium 8.4 mg/dl (8.5-10.1) L 04/10/21 06:33 Phosphorus 3.4 mg/dl (2.5-4.9) D 04/05/21 12:48 Magnesium 2.1 mg/dl (1.8-2.4) 04/05/21 12:48 Total Bilirubin 0.6 mg/dl (0.2-1) 04/06/21 04:25 AST 21 U/L (15-37) 04/06/21 04:25 ALT 29 U/L (12-78) 04/06/21 04:25 Alkaline Phosphatase 59 U/L (45-117) 04/06/21 04:25 Troponin I 0.067 ng/ml (0-0.045) H* 04/06/21 10:24 Total Protein 5.6 gm/dl (6.4-8.2) L 04/06/21 04:25 Albumin 2.8 gm/dl (3.4-5.0) L 04/06/21 04:25 Globulin 2.8 gm/dl (2.5-4.0) 04/06/21 04:25 Albumin/Globulin Ratio 1.0 (0.9-2) 04/06/21 04:25 TSH 4.390 uIu/ml (0.300-4.500) 04/05/21 12:48 Vancomycin Trough 10.8 mcg/ml (See Comment) 04/07/21 17:21 COVID-19 Eval Order Covid19 at [facility] 04/05/21 15:12 SARS-CoV-2 (PCR) NEGATIVE (Negative) 04/05/21 15:12 Impressions Chest X-Ray 04/05/21 12:33 XR chest 1V portable CLINICAL HISTORY: Atypical chest pain TECHNIQUE: Single frontal radiograph of the chest was obtained. Comparison: None available at the time of this dictation. FINDINGS: A right port catheter is seen. Cardiomegaly is noted. Left hemidiaphragmatic elevation is noted with a focus of atelectasis at the lung base. Lungs are otherwise clear. No evidence of pleural effusion or pneumothorax. IMPRESSION: No acute chest disease. ACT 112: Negative or not required by law. Electronically signed by: Spike Murguia M.D. 04/05/2021 12:[address] 04/08/21 14:42 CT chest diagnostic w con CLINICAL HISTORY: infected right chest port swelling and redness around the port. TECHNIQUE: Multidetector row helical CT of the chest was performed. Coronal and sagittal reformations were obtained. Automated dose lowering techniques and/or adjustment according to patient size were utilized for this exam. Comparison: Comparison is made to chest one view 04/05/2031 FINDINGS: Lungs and pleura: Elevation of left hemidiaphragm is seen with associated atelectasis. Scattered calcified granulomata are seen. Heart and pericardium: Heart size is normal. No pericardial effusion. Vessels: Moderate atherosclerotic changes in the aorta and coronary arteries. Mediastinum and kathie: Unremarkable. Chest wall and lower neck: Soft tissue stranding and skin thickening is seen about the port catheter. Abdomen: Unremarkable. Bones: Degenerative changes in the thoracic spine. IMPRESSION: Soft tissue stranding and skin thickening about the port catheter compatible with cellulitis. No drainable fluid collection. ACT 112: Negative or not required by law. Electronically signed by: Spike Murguia M.D. 04/08/2021 3:57 PM Hospital Course (1) Cellulitis of chest wall: Examination with concern over erythema on right anterior chest wall, previously thought to be a tape reaction. Out of caution he was placed on Vancomycin and Zosyn for 48 hours. Remaind hemodynamically stable and afebrile throughout this hospital stay. CT chest revealed no evidence of underlying abscess and cultures were unremarkable at time of dsicharge. He will be continued on Amoxicillin and Doxy for an additional 5 days. Close follow-up with primary care recommended. (2) Bradycardia: Admitted initially for concerns of transient bradycardia occurring while platelet infusion was occurring in cancer center. This improved spontaneously and he remained with a normal rhythm on telemetry monitoring throughout his entire hospital stay. Etiology was possible misread ectopy per cardiology. No further workup needed at this time. (3) Elevated troponin: Nonischemic in etiology per cardiology. Echo revealed no new wall motion abnormalities. No further workup at this time. (4) AML (acute myeloid leukemia): On chemotherapy, last given 04/06, currently wtih pancytopenia and immunosuppression 2/2 chemotherapy. He is not clinically ill and needs to be discharged sariah to reduce the risk of hospital acquired infections and continue to prepare for his upcoming stem cell transplantation in one month. (5) Pancytopenia due to antineoplastic chemotherapy: as above. Supportive care, Proophylaxis medications per home regimen, noted antifungal not on formulary. Transfusions PRN. Instructed to resume outpatient monitoring. Total Time Total Time Spent Total Time Spent (In Minutes): 60 Discharge Plan Discharge Items Patient Disposition: Home - Self-Care Reason For Visit: +TROPONIN, CHEST WALL CELLULITIS Discharge Diagnosis: cellulitis of chest wall bradycardia elevated troponin AML pancytopenia due to antineoplastic chemotherapy Condition on Discharge: Good Activity: Resume your previous activity Non-emergency contact: Primary Care Provider Call non-emergency contact if: you have any medication questions, your symptoms worsen, your pain is not controlled, you have a fever, your wound has increased redness, your wound has increased drainage and your wound pain has increased Follow-up/Referrals: Elba Yañez PA-C [Primary Care Provider] - Diet: Regular Addtl Attending Provider Instructions: Please continue with your scheduled lab checks as ordered through your oncologist to check your blood counts. It is recommended that you follow-up with your primary care physician within one week of hospital discharge to ensure your port site is continuing to look good. Please continue the short course of antibiotics given at discharge until completed. It was a pleasure taking care of you! Please call if you have any questions or problems. You can reach a [facility] hospitalist on duty at [facility] 24 hours a day by calling [phone]. Take care of yourself. Nery Tim DO [facility] Hospitalist Pending Studies at Discharge: No Stand-Alone Forms: My [facility] Medications and DC Order Prescriptions: New amoxicillin-pot clavulanate [Augmentin] 875-125 mg Tablet 1 tab PO BIDM Qty: 10 RF: 0 Continued metoprolol succinate [Toprol XL] 50 mg Tablet Extended Release 24 Hr 50 mg PO DAILY 30 Days Qty: 15 RF: 5 fluticasone propion-salmeterol 250-50 mcg/dose Blister With Device 1 inh INHALATION BID RF: 0 amlodipine 5 mg Tablet 5 mg PO DAILY RF: 0 acyclovir 400 mg Tablet 400 mg PO TID RF: 0 ascorbic acid (vitamin C) 500 mg Tablet 500 mg PO BID RF: 0 tamsulosin 0.4 mg Capsule 0.4 mg PO DAILY RF: 0 allopurinol 300 mg Tablet 300 mg PO DAILY RF: 0 levofloxacin 500 mg Tablet 500 mg PO DAILY RF: 0 ondansetron 4 mg Tablet,Disintegrating 4 mg PO Q8H PRN (Reason: Nausea And Vomiting) RF: 0 loratadine 10 mg Tablet 10 mg PO DAILY RF: 0 ezetimibe 10 mg Tablet 10 mg PO DAILY RF: 0 rosuvastatin 10 mg Tablet 10 mg PO DAILY RF: 0 posaconazole 100 mg Tablet,Delayed Release (Dr/Ec) 300 mg PO DAILY RF: 0 fluticasone prp-sod.chl,bicarb 50 mcg- 0.9 % Kit,[place] Suspension And [place] 1 ea INTRANASAL DAILY RF: 0 venetoclax 10 mg Tablet 70 mg PO DAILY RF: 0 doxycycline hyclate 100 mg Capsule 100 mg PO BID Qty: 10 RF: 0 Discontinued doxycycline hyclate 100 mg Capsule 100 mg PO BID RF: 0 amoxicillin-pot clavulanate [Augmentin] 500-125 mg Tablet 1 tab PO BID RF: 0 Discharge Orders: Discharge Order (Routine); Ordered 04/10/21 Ordered By: Nery Tim Admission Data Admit Date/Time: 04/06/21 14:49 Attending Provider: Nery Tim Admit Provider: Knab,Charly F. Primary Care Provider: Elba Yañez Other Providers: Charly Prieto ; Placido Allred ; Feng Donovan ; Chele Mccormack ; Macho Connors I. ; Jimi Nieto II ; Polly Rowe ; Yamil Bates ; Jose Elias Ellis ; Eduardo Foster V.
[2021-04-10] MEDS: TAMSULOSIN HCL 0.4 MG CAP PO SCH (14:21)
== END 2021-04-10 15:10 | disposition home or self-care (01) | DRG 602 ==
LOC: 1E 12:13 → ED 12:13 → 1E 17:55 → SUATTDRO 04-06 14:49 → 2W 04-06 22:02
DX: E78.5 Hyperlipidemia, unspecified; C92.00 Acute myeloblastic leukemia, not having achieved remission; I11.0 Hypertensive heart disease with heart failure; Z79.2 Long term (current) use of antibiotics; G47.33 Obstructive sleep apnea (adult) (pediatric); Z20.822 Contact with and (suspected) exposure to COVID-19; I27.20 Pulmonary hypertension, unspecified; D84.821 Immunodeficiency due to drugs; R77.8 Other specified abnormalities of plasma proteins; Z79.51 Long term (current) use of inhaled steroids; J45.909 Unspecified asthma, uncomplicated; Z95.5 Presence of coronary angioplasty implant and graft; D61.810 Antineoplastic chemotherapy induced pancytopenia; I50.32 Chronic diastolic (congestive) heart failure; Z76.82 Awaiting organ transplant status; L03.313 Cellulitis of chest wall; R00.1 Bradycardia, unspecified; Z79.899 Other long term (current) drug therapy; I25.10 Atherosclerotic heart disease of native coronary artery without angina pectoris